=== PATIENT | female | born 1935 | race African-American/Black ===

== ENCOUNTER 2018-02-25 22:01 | Inpatient (IN) | payer MEDICARE, BC ==
[2018-02-25 23:53] LABS: % BASOPHILS 0.4 % (0.0-2.0); % EOSINOPHILS 8.1 % (0.0-5.0); % LYMPHOCYTES 22.3 % (20.0-50.0); % MONOCYTES 6.6 % (2.0-10.0); % NEUTROPHILS 62.6 % (40.0-80.0); EOSINOPHILE ABSOLUTE 0.7 Th/cmm (0.1-0.4); HEMATOCRIT 38.8 % (41.0-60); HEMOGLOBIN 12.9 gm/dL (12-16); LYMPHOCYTE ABSOLUTE 1.9 Th/cmm (1.5-3.0); MEAN CELL VOLUME 92.5 fl (81-100); MEAN CORPUSCULAR HEMOGLOBIN 30.7 pg (27.0-31.0); MEAN CORPUSCULAR HGB CONC 33.2 pg (28.0-36.0); MEAN PLATELET VOLUME 8.8 fl; MONOCYTE ABSOLUTE 0.6 Th/cmm (0.3-1.0); NEUTROPHILE ABSOLUTE 5.3 Th/cmm (1.8-8.0); PLATELET COUNT 156 Th/cmm (150-400); WHITE BLOOD COUNT 8.5 Th/cmm (4.8-10.8)
[2018-02-26 00:09] LABS: ALB/GLOB RATIO 1.5 (1.0-1.8); ALBUMIN 4.4 gm/dL (3.7-5.3); ALKALINE PHOSPHATASE 35 U/L (34-104); ANION GAP 10.3 (7.0-16.0); BILIRUBIN,TOTAL 0.4 mg/dL (0.3-1.0); BUN - UREA NITROGEN 12 mg/dL (7-25); CALCIUM SERUM 10.3 mg/dL (8.6-10.3); CARBON DIOXIDE 28.8 mEq/L (21.0-31.0); CHLORIDE 102 mEq/L (98-107); CREATININE - SERUM 1.5 mg/dL (0.6-1.2); GLUCOSE 142 mg/dL (70-105); POTASSIUM SERUM 4.1 mEq/L (3.5-5.1); SGOT 48 U/L (13-39); SGPT/ALT 54 U/L (7-52); SODIUM SERUM 137 mEq/L (136-145); TOTAL PROTEIN,SERUM 7.4 gm/dL (6.0-8.3)
--- NOTE | 2018-02-26 00:38 | ED Physician Chart ---
ED Chief Complaint/HPI - Patient Information Date Seen:: 02/26/18 Time Seen:: 23:30 Chief Complaint:: anxiety agitation psych History of Present Illness:: 82 yr old female with psychosis from [facility] with psychosis agiatation Allergies:: Allergies Allergy/AdvReac Type Severity Reaction Status Date / Time acetaminophen [From Vicodin] Allergy Verified 02/25/18 23:17 erythromycin base Allergy Verified 02/25/18 23:17 hydrocodone [From Vicodin] Allergy Verified 02/25/18 23:17 Penicillins [PCN] Allergy Verified 02/25/18 23:17 Sulfa (Sulfonamide Allergy Verified 02/25/18 23:17 Antibiotics) Vitals:: Vital Signs - 8 hr 02/25/18 23:00 Temp 97.8 F HR 84 RR 18 BP 128/72 O2 Sat % 96 Historian:: Patient, EMS ED Review of Systems - Review of Systems General/Constitutional: No fever, No chills, No weight loss, No weakness, No diaphoresis, No edema, No loss of appetite Skin: No skin lesions, No rash, No bruising Head: No headache, No light-headedness Eyes: No loss of vision, No pain, No diplopia ENT: No earache, No nasal drainage, No sore throat, No tinnitus Neck: No neck pain, No swelling, No thyromegaly, No stiffness, No mass noted Cardio Vascular: No chest pain, No palpitations, No PND, No orthopnea, No edema Pulmonary: No SOB, No cough, No sputum, No wheezing GI: No nausea, No vomiting, No diarrhea, No pain, No melena, No hematochezia, No constipation, No hematemesis G/U: No dysuria, No frequency, No hematuria Musculoskeletal: No bone or joint pain, No back pain, No muscle pain Endocrine: No polyuria, No polydipsia Psychiatric: No prior psych history, No depression, No anxiety, No suicidal ideation Hematopoietic: No bruising, No lymphadenopathy Allergic/Immuno: No urticaria, No angioedema Neurological: No syncope, No focal symptoms, No weakness, No paresthesia, No headache, No seizure, No dizziness, No confusion, No vertigo ED Past Medical History - Past Medical History Past Medical History: HTN, PUD/GERD, Other (,bipolar,dm,thyroid gerd) Family Medical History - Family Member Mother History Unknown: Yes ED Physical Exam - Physical Examination General/Constitutional: Awake, Well-developed, well-nourished, Alert, No distress, GCS 15, Non-toxic appearing, Ambulatory Head: Atraumatic Eyes: Lids, conjuctiva normal, PERRL, EOMI Skin: Nl inspection, No rash, No skin lesions, No ecchymosis, Well hydrated, No lymphadenopathy ENMT: External ears, nose nl, Nasal exam nl, Lips, teeth, gums nl Neck: Nontender, Full ROM w/o pain, No JVD, No nuchal rigidity, No bruit, No mass, No stridor Respiratory: Nl effort/Exclusion, Clear to Auscultation, No Wheeze/Rhonchi/Rales Cardio Vascular: RRR, No murmur, gallop, rubs, NL S1 S2 GI: No tenderness/rebounding/guarding, No organomegaly, No hernia, Normal BS's, Nondistended, No mass/bruits, No McBurney tenderness : No CVA tenderness Extremities: No tenderness or effusion, Full ROM, normal strength in all extremities, No edema, Normal digits & nails Neuro/Psych: Alert/oriented, DTR's symmetric, Normal sensory exam, Normal motor strength, Judgement/insight normal, Mood normal, Normal gait, No focal deficits Misc: Normal back, No paraspinal tenderness ED Labs/Radiology/EKG Results - Lab Results Results: Laboratory Tests 02/25/18 02/25/18 23:45 23:45 WBC 8.5 RBC 4.20 Hgb 12.9 Hct 38.8 L MCV 92.5 MCH 30.7 MCHC Differential 33.2 RDW 14.0 Plt Count 156 MPV 8.8 Neutrophils % 62.6 Lymphocytes % 22.3 Monocytes % 6.6 Eosinophils % 8.1 H Basophils % 0.4 Sodium 137 Potassium 4.1 Chloride 102 Carbon Dioxide 28.8 Anion Gap 10.3 BUN 12 Creatinine 1.5 H Est GFR ( Amer) TNP Est GFR (Non-Af Amer) TNP BUN/Creatinine Ratio 8.0 Glucose 142 H Calcium 10.3 Total Bilirubin 0.4 AST 48 H ALT 54 H Alkaline Phosphatase 35 Total Protein 7.4 Albumin 4.4 Globulin 3.0 Albumin/Globulin Ratio 1.5 ED Assessment - Assessment General Assessment: bipolar disorder ED Septic Shock - . Is Septic Shock (SBP<90, OR Lactate>4 mmol\L) present?: No - <6hrs of presentation: Vital Signs: Vital Signs - 8 hr 02/25/18 23:00 Temp 97.8 F HR 84 RR 18 BP 128/72 O2 Sat % 96 ED Reassessment (Disposition) - Reassessment Reassessment Condition:: Improved - Diagnosis Diagnosis:: psychosis bipolar - Patient Disposition Discharge/Transfer:: Acute Care w/in this hosp
[2018-02-26 01:06] LABS: URINE MICROSCOPIC INDICATED? YES; URINE SOURCE CLEAN C
[2018-02-26 01:08] LABS: URINE BILIRUBIN NEGATIVE (NEGATIVE); URINE BLOOD NEGATIVE (NEGATIVE); URINE GLUCOSE (UA) NEGATIVE (NEGATIVE); URINE KETONE NEGATIVE (NEGATIVE); URINE LEUKOCYTE ESTERASE NEGATIVE (NEGATIVE); URINE NITRATE NEGATIVE (NEGATIVE); URINE PROTEIN NEGATIVE (NEGATIVE); URINE UROBILINOGEN 0.2 E.U./dL (0.2 - 1.0)
[2018-02-26 01:29] LABS: URINE CLARITY CLEAR (CLEAR); URINE COLOR YELLOW
[2018-02-26 01:30] LABS: URINE BACTERIA NONE SEEN /hpf (NONE SEEN); URINE EPITHELIAL CELLS NONE SEEN /lpf (FEW); URINE RBC NONE SEEN /hpf (0-5); URINE WBC NONE SEEN /hpf (0-5)
[2018-02-26] MEDS ORDERED: Albuterol/Ipratropium Neb 3 ML AERS HHN PRN (02:10)
[2018-02-26] MEDS ORDERED: Fleet Enema 135 mL RC PRN (02:10)
[2018-02-26] MEDS ORDERED: Magnesium Hydroxide (MOM) 30 mL UDC PO PRN (02:10)
[2018-02-26] MEDS: Levothyroxine 0.075 Mg Tab PO SCH (06:53)
[2018-02-26] MEDS: Pantoprazole 40 mg EC Tab PO SCH (06:53)
--- NOTE | 2018-02-26 11:26 | History & Physical ---
ADMIT DATE: 02/26/2018 CHIEF COMPLAINT: Agitation. HISTORY OF PRESENT ILLNESS: This is an 82-year-old female who was admitted from a group home facility and then sent to the Emergency Room due to increase in agitation. REVIEW OF SYSTEMS: GENERAL: This is an 82-year-old female that appears as stated, no fever, no chills, no weakness. HEAD: No headache. No dizziness. EYES: No eye pain, no blurring of vision. NECK: No neck pain, no nuchal rigidity. CARDIOVASCULAR: No chest pain. No palpitation. PULMONARY: No shortness of breath, no coughing. GASTROINTESTINAL: No diarrhea, no constipation, no abdominal pain. MUSCULOSKELETAL: No bone pain, no joint pain. SOCIAL HISTORY: The patient lives in a group home facility prior to hospitalization. FAMILY HISTORY: Unremarkable. PAST SURGICAL HISTORY: Unremarkable. PAST MEDICAL HISTORY: Includes asthma, hypertension, neuropathy, hypothyroidism, gastroesophageal reflux disease, diabetes, osteoarthritis. PSYCHIATRIC HISTORY: Includes bipolar disorder. PHYSICAL EXAMINATION: VITAL SIGNS: Temperature 97.8, heart rate of 76, blood pressure 135/77, respiration of 18, 98% on room air. HEENT: Head is atraumatic, normocephalic. Eyes: Bilateral conjunctivae are clear. Bilateral pupils are equally round and reactive. NECK: Supple. No JVD. CARDIOVASCULAR: S1 and S2, without murmur. PULMONARY: Clear to auscultation. GASTROINTESTINAL: Soft and nontender without guarding. Positive bowel sounds. MUSCULOSKELETAL: No clubbing. No cyanosis noted. ASSESSMENT: 1. Bipolar disorder. 2. Asthma. 3. Hyperlipidemia. 4. Osteoarthritis. 5. Hypertension. 6. Depression. 7. Neuropathy. 8. Hypothyroidism. 9. Gastroesophageal reflux disease. 10. Diabetes. PLAN: We will admit the patient to senior mental health unit. We will follow up with the psychiatrist to monitor the patient's condition and behavior. Also, going to do medication reconciliation accordingly. Treatment plans were discussed with the patient's nurse. Treatment plans were discussed with Dr. Bianchi. JOB# [id number]
[2018-02-26] MEDS ORDERED: Non-Formulary Item 1 EA (Melatonin/Pyridoxine Hcl (B6) [Melatonin 3 Mg Tablet] 1 EACH) PO SCH (21:00)
[2018-02-26] MEDS: Atorvastatin Calcium 10 MG TAB PO SCH (21:20)
--- NOTE | 2018-02-26 23:51 | Psychosocial Evaluation ---
DATE OF SERVICE: 02/26/2018 PSYCHIATRIC INITIAL EVALUATION AND MENTAL STATUS EXAM PATIENT'S AGE: 82-year-old. SEX: Female. PHYSICIAN: Patricia Rivera MD, MPH CHIEF COMPLAINT: Irritability and manic behavior. HISTORY OF PRESENT ILLNESS: The patient is an 82-year-old female who was transferred from [facility] because of increased aggressive behavior and striking out at staff and other patients. The patient has history of what seems to be bipolar and the patient states she has been manic and has been extremely irritable. The patient also during my interview was hyperverbal and she was selective and has elated mood. The patient also is intrusive to others. She also was not able to follow my directions and the speech was pressured. PAST PSYCHIATRIC HISTORY: The patient has history of bipolar disorder. PAST MEDICAL HISTORY: The patient has hypertension, peptic ulcer disease, diabetes mellitus and hypothyroidism. SOCIAL HISTORY: The patient said that she has 3 children. The patient said that she was many times. She also denies alcohol or street drug use. ALLERGIES: No known allergies. MENTAL STATUS EXAMINATION: The patient appears younger than her stated age. Loud makeup and clothes. Hyperverbal. Pressured speech and thought processes are circumstantial and tangential with flight of ideas. The patient denies auditory or visual hallucinations, but has grandeur delusions. She denies suicidal or homicidal ideations. The patient is alert and oriented to time, place, person, and situation. Intact immediate, recent and remote memories. Poor insight and poor judgment. ASSESSMENT: PRIMARY DIAGNOSIS: Bipolar disorder, manic episode, severe, with psychotic features. TREATMENT PLAN: Monitor the patient's behavior closely. We will start the patient on Seroquel. Might add mood stabilizer later on. ESTIMATED LENGTH OF STAY: 5-7 days. THE PATIENT'S STRENGTHS AND WEAKNESSES: The patient seems to be in relatively fair health. Weaknesses: Her psychosis and her manic behavior. AFTER DISCHARGE PLAN: The patient will return to [facility] and outpatient treatment and followup will be followed there. CRITERIA FOR DISCHARGE: The patient will not be psychotic or agitated and stabilized psychotropic medications and establish outpatient treatment plans. JOB# [id number]
[2018-02-27] MEDS: Pantoprazole 40 mg EC Tab PO SCH (06:41)
[2018-02-27] MEDS: Levothyroxine 0.075 Mg Tab PO SCH (06:41)
--- NOTE | 2018-02-27 07:06 | General Progress Note ---
Subjective - Review of Systems Events since last encounter: patient confused irritable no signs of pain Objective - Results Result Diagrams: 02/25/18 23:45 02/25/18 23:45 Recent Labs: Laboratory Last Values WBC 8.5 Th/cmm (4.8-10.8) 02/25/18 23:45 RBC 4.20 Mil/cmm (3.80-5.20) 02/25/18 23:45 Hgb 12.9 gm/dL (12-16) 02/25/18 23:45 Hct 38.8 % (41.0-60) L 02/25/18 23:45 MCV 92.5 fl (81-100) 02/25/18 23:45 MCH 30.7 pg (27.0-31.0) 02/25/18 23:45 MCHC Differential 33.2 pg (28.0-36.0) 02/25/18 23:45 RDW 14.0 % (11.5-20.0) 02/25/18 23:45 Plt Count 156 Th/cmm (150-400) 02/25/18 23:45 MPV 8.8 fl 02/25/18 23:45 Neutrophils % 62.6 % (40.0-80.0) 02/25/18 23:45 Lymphocytes % 22.3 % (20.0-50.0) 02/25/18 23:45 Monocytes % 6.6 % (2.0-10.0) 02/25/18 23:45 Eosinophils % 8.1 % (0.0-5.0) H 02/25/18 23:45 Basophils % 0.4 % (0.0-2.0) 02/25/18 23:45 Sodium 137 mEq/L (136-145) 02/25/18 23:45 Potassium 4.1 mEq/L (3.5-5.1) 02/25/18 23:45 Chloride 102 mEq/L (98-107) 02/25/18 23:45 Carbon Dioxide 28.8 mEq/L (21.0-31.0) 02/25/18 23:45 Anion Gap 10.3 (7.0-16.0) 02/25/18 23:45 BUN 12 mg/dL (7-25) 02/25/18 23:45 Creatinine 1.5 mg/dL (0.6-1.2) H 02/25/18 23:45 Est GFR ( Amer) TNP 02/25/18 23:45 Est GFR (Non-Af Amer) TNP 02/25/18 23:45 BUN/Creatinine Ratio 8.0 02/25/18 23:45 Glucose 142 mg/dL (70-105) H 02/25/18 23:45 Calcium 10.3 mg/dL (8.6-10.3) 02/25/18 23:45 Total Bilirubin 0.4 mg/dL (0.3-1.0) 02/25/18 23:45 AST 48 U/L (13-39) H 02/25/18 23:45 ALT 54 U/L (7-52) H 02/25/18 23:45 Alkaline Phosphatase 35 U/L (34-104) 02/25/18 23:45 Total Protein 7.4 gm/dL (6.0-8.3) 02/25/18 23:45 Albumin 4.4 gm/dL (3.7-5.3) 02/25/18 23:45 Globulin 3.0 gm/dL 02/25/18 23:45 Albumin/Globulin Ratio 1.5 (1.0-1.8) 02/25/18 23:45 Urine Source CLEAN C 02/26/18 00:30 Urine Color YELLOW 02/26/18 00:30 Urine Clarity CLEAR (CLEAR) 02/26/18 00:30 Urine pH 6.0 (4.6 - 8.0) 02/26/18 00:30 Ur Specific [place] <= 1.005 (1.005-1.030) 02/26/18 00:30 Urine Protein NEGATIVE mg/dL (NEGATIVE) 02/26/18 00:30 Urine Glucose (UA) NEGATIVE mg/dL (NEGATIVE) 02/26/18 00:30 Urine Ketones NEGATIVE mg/dL (NEGATIVE) 02/26/18 00:30 Urine Blood NEGATIVE (NEGATIVE) 02/26/18 00:30 Urine Nitrate NEGATIVE (NEGATIVE) 02/26/18 00:30 Urine Bilirubin NEGATIVE (NEGATIVE) 02/26/18 00:30 Urine Urobilinogen 0.2 E.U./dL (0.2 - 1.0) 02/26/18 00:30 Ur Leukocyte Esterase NEGATIVE (NEGATIVE) 02/26/18 00:30 Urine RBC NONE SEEN /hpf (0-5) 02/26/18 00:30 Urine WBC NONE SEEN /hpf (0-5) 02/26/18 00:30 Ur Epithelial Cells NONE SEEN /lpf (FEW) 02/26/18 00:30 Urine Bacteria NONE SEEN /hpf (NONE SEEN) 02/26/18 00:30 - Physical Exam Vitals and I&O: Vital Signs Temp 97.2 F 02/27/18 06:44 Pulse 96 02/27/18 06:44 Resp 18 02/27/18 06:44 BP 145/82 02/27/18 06:44 Pulse Ox 98 02/27/18 06:44 Intake & Output 02/26/18 02/27/18 02/27/18 18:59 06:59 18:59 Intake Total 360 Balance 360 Intake: Oral 360 Other: # Voids 2 Active Medications: Current Medications Albuterol/Ipratropium (Duoneb Neb) 3 ml HHN Q6HRT PRN PRN Reason: Chronic Bronchitis Stop: 04/27/18 02:09 Atorvastatin Calcium (Lipitor) 40 mg PO [facility] Stop: 04/27/18 20:59 Last Admin: 02/26/18 21:20 Dose: 40 mg Baclofen (Lioresal) 10 mg PO BID [facility] Stop: 04/27/18 08:59 Last Admin: 02/26/18 16:38 Dose: 10 mg Benazepril HCl (Lotensin) 10 mg PO DAILY [facility] Stop: 04/27/18 08:59 Last Admin: 02/26/18 08:29 Dose: 10 mg Bisacodyl (Dulcolax 10 Mg Supp) 10 mg RC DAILY PRN PRN Reason: Constipation Stop: 04/27/18 02:09 Divalproex Sodium (Depakote Dr) 250 mg PO BID [facility]; Protocol Stop: 04/27/18 08:59 Last Admin: 02/26/18 16:37 Dose: 250 mg Docusate Sodium (Colace) 100 mg PO DAILY [facility] Stop: 04/27/18 08:59 Last Admin: 02/26/18 08:29 Dose: 100 mg Escitalopram Oxalate (Lexapro) 10 mg PO DAILY [facility]; Protocol Stop: 04/27/18 08:59 Last Admin: 02/26/18 08:29 Dose: 10 mg Gabapentin (Neurontin) 300 mg PO BID [facility] Stop: 04/27/18 08:59 Last Admin: 02/26/18 16:37 Dose: 300 mg Hydrocortisone (Anusol-Hc) 25 mg RC Q12HR [facility] Stop: 04/27/18 08:59 Last Admin: 02/26/18 21:21 Dose: Not Given Levothyroxine Sodium (Synthroid) 0.075 mg PO QDAC [facility] Stop: 04/27/18 07:29 Last Admin: 02/27/18 06:41 Dose: 0.075 mg Lorazepam (Ativan) 0.5 mg PO Q6HR PRN; Protocol PRN Reason: Agitation Stop: 04/27/18 04:47 Last Admin: 02/26/18 16:38 Dose: 0.5 mg Magnesium Hydroxide (Milk Of Magnesia) 30 ml PO HS PRN PRN Reason: Pain (Severe) Stop: 04/27/18 02:09 Pantoprazole Sodium (Protonix) 40 mg PO QDAC [facility] Stop: 04/27/18 07:29 Last Admin: 02/27/18 06:41 Dose: 40 mg Quetiapine Fumarate (Seroquel) 25 mg PO BID [facility]; Protocol Stop: 04/27/18 16:59 Last Admin: 02/26/18 16:38 Dose: 25 mg Sitagliptin Phosphate (Januvia) 100 mg PO DAILY [facility] Stop: 04/27/18 08:59 Last Admin: 02/26/18 08:29 Dose: 100 mg Sodium Phosphate (Fleet Enema) 135 ml RC Q48HR PRN PRN Reason: Constipation Stop: 04/27/18 02:09 Tramadol HCl (Ultram) 50 mg PO Q6H PRN PRN Reason: Severe Pain Stop: 04/27/18 02:09 Last Admin: 02/26/18 17:31 Dose: 50 mg Zolpidem Tartrate (Ambien) 5 mg PO HS PRN PRN Reason: Insomnia Stop: 04/27/18 04:48
--- NOTE | 2018-02-27 17:54 | Progress Notes ---
DATE: SUBJECTIVE: Chart reviewed and the patient interviewed. Also discussed the patient's condition with the staff and reviewed records and labs. The patient continued to be agitated. The patient also is still in irritable mood. The patient also still has grandiose delusions. She also is still hyperverbal. She also still has episodes of yelling and screaming. Otherwise, the patient is compliant with taking her medications with no side effect of medications. ASSESSMENT: The patient is still agitated. TREATMENT PLAN: Continue to monitor her behavior and her condition closely. Also, continue adjusting psychotropic medications and working on behavioral modification. JOB# [id number]
[2018-02-27] MEDS: Atorvastatin Calcium 10 MG TAB PO SCH (20:46)
[2018-02-28] MEDS: Pantoprazole 40 mg EC Tab PO SCH (06:38)
[2018-02-28] MEDS: Levothyroxine 0.075 Mg Tab PO SCH (06:38)
--- NOTE | 2018-02-28 08:47 | General Progress Note ---
Subjective - Review of Systems Events since last encounter: patient is agitated no signs of pain Objective - Results Result Diagrams: 02/25/18 23:45 02/25/18 23:45 Recent Labs: Laboratory Last Values WBC 8.5 Th/cmm (4.8-10.8) 02/25/18 23:45 RBC 4.20 Mil/cmm (3.80-5.20) 02/25/18 23:45 Hgb 12.9 gm/dL (12-16) 02/25/18 23:45 Hct 38.8 % (41.0-60) L 02/25/18 23:45 MCV 92.5 fl (81-100) 02/25/18 23:45 MCH 30.7 pg (27.0-31.0) 02/25/18 23:45 MCHC Differential 33.2 pg (28.0-36.0) 02/25/18 23:45 RDW 14.0 % (11.5-20.0) 02/25/18 23:45 Plt Count 156 Th/cmm (150-400) 02/25/18 23:45 MPV 8.8 fl 02/25/18 23:45 Neutrophils % 62.6 % (40.0-80.0) 02/25/18 23:45 Lymphocytes % 22.3 % (20.0-50.0) 02/25/18 23:45 Monocytes % 6.6 % (2.0-10.0) 02/25/18 23:45 Eosinophils % 8.1 % (0.0-5.0) H 02/25/18 23:45 Basophils % 0.4 % (0.0-2.0) 02/25/18 23:45 Sodium 137 mEq/L (136-145) 02/25/18 23:45 Potassium 4.1 mEq/L (3.5-5.1) 02/25/18 23:45 Chloride 102 mEq/L (98-107) 02/25/18 23:45 Carbon Dioxide 28.8 mEq/L (21.0-31.0) 02/25/18 23:45 Anion Gap 10.3 (7.0-16.0) 02/25/18 23:45 BUN 12 mg/dL (7-25) 02/25/18 23:45 Creatinine 1.5 mg/dL (0.6-1.2) H 02/25/18 23:45 Est GFR ( Amer) TNP 02/25/18 23:45 Est GFR (Non-Af Amer) TNP 02/25/18 23:45 BUN/Creatinine Ratio 8.0 02/25/18 23:45 Glucose 142 mg/dL (70-105) H 02/25/18 23:45 Calcium 10.3 mg/dL (8.6-10.3) 02/25/18 23:45 Total Bilirubin 0.4 mg/dL (0.3-1.0) 02/25/18 23:45 AST 48 U/L (13-39) H 02/25/18 23:45 ALT 54 U/L (7-52) H 02/25/18 23:45 Alkaline Phosphatase 35 U/L (34-104) 02/25/18 23:45 Total Protein 7.4 gm/dL (6.0-8.3) 02/25/18 23:45 Albumin 4.4 gm/dL (3.7-5.3) 02/25/18 23:45 Globulin 3.0 gm/dL 02/25/18 23:45 Albumin/Globulin Ratio 1.5 (1.0-1.8) 02/25/18 23:45 Urine Source CLEAN C 02/26/18 00:30 Urine Color YELLOW 02/26/18 00:30 Urine Clarity CLEAR (CLEAR) 02/26/18 00:30 Urine pH 6.0 (4.6 - 8.0) 02/26/18 00:30 Ur Specific [place] <= 1.005 (1.005-1.030) 02/26/18 00:30 Urine Protein NEGATIVE mg/dL (NEGATIVE) 02/26/18 00:30 Urine Glucose (UA) NEGATIVE mg/dL (NEGATIVE) 02/26/18 00:30 Urine Ketones NEGATIVE mg/dL (NEGATIVE) 02/26/18 00:30 Urine Blood NEGATIVE (NEGATIVE) 02/26/18 00:30 Urine Nitrate NEGATIVE (NEGATIVE) 02/26/18 00:30 Urine Bilirubin NEGATIVE (NEGATIVE) 02/26/18 00:30 Urine Urobilinogen 0.2 E.U./dL (0.2 - 1.0) 02/26/18 00:30 Ur Leukocyte Esterase NEGATIVE (NEGATIVE) 02/26/18 00:30 Urine RBC NONE SEEN /hpf (0-5) 02/26/18 00:30 Urine WBC NONE SEEN /hpf (0-5) 02/26/18 00:30 Ur Epithelial Cells NONE SEEN /lpf (FEW) 02/26/18 00:30 Urine Bacteria NONE SEEN /hpf (NONE SEEN) 02/26/18 00:30 - Physical Exam Vitals and I&O: Vital Signs Temp 97.2 F 02/28/18 06:46 Pulse 75 02/28/18 06:46 Resp 20 02/28/18 06:46 BP 141/78 02/28/18 06:46 Pulse Ox 97 02/28/18 06:46 Intake & Output 02/27/18 02/28/18 02/28/18 18:59 06:59 18:59 Intake Total 800 120 Balance 800 120 Intake: Oral 800 120 Other: # Voids 3 2 # Bowel Movements 1 Active Medications: Current Medications Albuterol/Ipratropium (Duoneb Neb) 3 ml HHN Q6HRT PRN PRN Reason: Chronic Bronchitis Stop: 04/27/18 02:09 Last Admin: 02/28/18 06:37 Dose: 3 ml Atorvastatin Calcium (Lipitor) 40 mg PO HS [facility] Stop: 04/27/18 20:59 Last Admin: 02/27/18 20:46 Dose: 40 mg Baclofen (Lioresal) 10 mg PO BID [facility] Stop: 04/27/18 08:59 Last Admin: 02/27/18 17:46 Dose: 10 mg Benazepril HCl (Lotensin) 10 mg PO DAILY [facility] Stop: 04/27/18 08:59 Last Admin: 02/27/18 09:50 Dose: 10 mg Bisacodyl (Dulcolax 10 Mg Supp) 10 mg RC DAILY PRN PRN Reason: Constipation Stop: 04/27/18 02:09 Divalproex Sodium (Depakote Dr) 500 mg PO BID [facility]; Protocol Stop: 04/29/18 08:59 Docusate Sodium (Colace) 100 mg PO DAILY [facility] Stop: 04/27/18 08:59 Last Admin: 02/27/18 09:50 Dose: 100 mg Escitalopram Oxalate (Lexapro) 10 mg PO DAILY [facility]; Protocol Stop: 04/27/18 08:59 Last Admin: 02/27/18 09:50 Dose: 10 mg Gabapentin (Neurontin) 300 mg PO BID [facility] Stop: 04/27/18 08:59 Last Admin: 02/27/18 17:46 Dose: 300 mg Hydrocortisone (Anusol-Hc) 25 mg RC Q12HR [facility] Stop: 04/27/18 08:59 Last Admin: 02/27/18 20:47 Dose: Not Given Levothyroxine Sodium (Synthroid) 0.075 mg PO QDAC [facility] Stop: 04/27/18 07:29 Last Admin: 02/28/18 06:38 Dose: 0.075 mg Lorazepam (Ativan) 0.5 mg PO Q6HR PRN; Protocol PRN Reason: Agitation Stop: 04/27/18 04:47 Last Admin: 02/26/18 16:38 Dose: 0.5 mg Magnesium Hydroxide (Milk Of Magnesia) 30 ml PO HS PRN PRN Reason: Pain (Severe) Stop: 04/27/18 02:09 Mupirocin (Bactroban Oint) 1 appl NS BID [facility] Stop: 03/04/18 09:01 Last Admin: 02/27/18 17:50 Dose: 1 appl Pantoprazole Sodium (Protonix) 40 mg PO QDAC [facility] Stop: 04/27/18 07:29 Last Admin: 02/28/18 06:38 Dose: 40 mg Quetiapine Fumarate (Seroquel) 50 mg PO BID [facility]; Protocol Stop: 04/29/18 08:59 Sitagliptin Phosphate (Januvia) 100 mg PO DAILY [facility] Stop: 04/27/18 08:59 Last Admin: 02/27/18 09:50 Dose: 100 mg Sodium Phosphate (Fleet Enema) 135 ml RC Q48HR PRN PRN Reason: Constipation Stop: 04/27/18 02:09 Tramadol HCl (Ultram) 50 mg PO Q6H PRN PRN Reason: Severe Pain Stop: 04/27/18 02:09 Last Admin: 02/26/18 17:31 Dose: 50 mg Zolpidem Tartrate (Ambien) 5 mg PO HS PRN PRN Reason: Insomnia Stop: 04/27/18 04:48 Last Admin: 02/27/18 20:46 Dose: 5 mg
[2018-02-28] MEDS ORDERED: Albuterol/Ipratropium Neb 3 ML AERS HHN ONE (12:13)
[2018-02-28] MEDS: Albuterol/Ipratropium Neb 3 ML AERS HHN SCH ×2 (12:18→19:37)
[2018-02-28] MEDS: Atorvastatin Calcium 10 MG TAB PO SCH (20:56)
--- NOTE | 2018-03-01 03:44 | Progress Notes ---
DATE: SUBJECTIVE: Chart reviewed and the patient interviewed. Also discussed the patient's condition with the staff and reviewed records and labs. The patient is still resisting care and she is still getting easily irritable and easily agitated. The patient also is still having difficulty with her mood and she is still cursing staff and talking loudly and demanding. She also is still in irritable mood and she still has difficulty following staff directions. Otherwise, the patient is compliant with taking her medications with no side effects of medications. ASSESSMENT: The patient is still agitated and psychotic and can be dangerous to others. TREATMENT PLAN: Increase Seroquel to 50 mg twice a day and also increase Depakote to 500 mg twice a day. Also, continue to work on her irritability and her anger. Also, we will get Depakote blood level next Wednesday and will continue to follow up closely. JOB# [id number]
[2018-03-01] MEDS: Pantoprazole 40 mg EC Tab PO SCH (06:43)
[2018-03-01] MEDS: Levothyroxine 0.075 Mg Tab PO SCH (06:43)
[2018-03-01] MEDS: Albuterol/Ipratropium Neb 3 ML AERS HHN SCH ×4 (07:04→19:30)
[2018-03-01] MEDS: Atorvastatin Calcium 10 MG TAB PO SCH (20:41)
[2018-03-02] MEDS: Albuterol/Ipratropium Neb 3 ML AERS HHN SCH ×5 (00:30→18:54)
[2018-03-02] MEDS: Pantoprazole 40 mg EC Tab PO SCH (06:36)
[2018-03-02] MEDS: Levothyroxine 0.075 Mg Tab PO SCH (06:37)
--- NOTE | 2018-03-02 16:28 | General Progress Note ---
Subjective - Review of Systems Events since last encounter: patient psychotics agitated at times Objective - Results Result Diagrams: 02/25/18 23:45 02/25/18 23:45 Recent Labs: Laboratory Last Values WBC 8.5 Th/cmm (4.8-10.8) 02/25/18 23:45 RBC 4.20 Mil/cmm (3.80-5.20) 02/25/18 23:45 Hgb 12.9 gm/dL (12-16) 02/25/18 23:45 Hct 38.8 % (41.0-60) L 02/25/18 23:45 MCV 92.5 fl (81-100) 02/25/18 23:45 MCH 30.7 pg (27.0-31.0) 02/25/18 23:45 MCHC Differential 33.2 pg (28.0-36.0) 02/25/18 23:45 RDW 14.0 % (11.5-20.0) 02/25/18 23:45 Plt Count 156 Th/cmm (150-400) 02/25/18 23:45 MPV 8.8 fl 02/25/18 23:45 Neutrophils % 62.6 % (40.0-80.0) 02/25/18 23:45 Lymphocytes % 22.3 % (20.0-50.0) 02/25/18 23:45 Monocytes % 6.6 % (2.0-10.0) 02/25/18 23:45 Eosinophils % 8.1 % (0.0-5.0) H 02/25/18 23:45 Basophils % 0.4 % (0.0-2.0) 02/25/18 23:45 Sodium 137 mEq/L (136-145) 02/25/18 23:45 Potassium 4.1 mEq/L (3.5-5.1) 02/25/18 23:45 Chloride 102 mEq/L (98-107) 02/25/18 23:45 Carbon Dioxide 28.8 mEq/L (21.0-31.0) 02/25/18 23:45 Anion Gap 10.3 (7.0-16.0) 02/25/18 23:45 BUN 12 mg/dL (7-25) 02/25/18 23:45 Creatinine 1.5 mg/dL (0.6-1.2) H 02/25/18 23:45 Est GFR ( Amer) TNP 02/25/18 23:45 Est GFR (Non-Af Amer) TNP 02/25/18 23:45 BUN/Creatinine Ratio 8.0 02/25/18 23:45 Glucose 142 mg/dL (70-105) H 02/25/18 23:45 Calcium 10.3 mg/dL (8.6-10.3) 02/25/18 23:45 Total Bilirubin 0.4 mg/dL (0.3-1.0) 02/25/18 23:45 AST 48 U/L (13-39) H 02/25/18 23:45 ALT 54 U/L (7-52) H 02/25/18 23:45 Alkaline Phosphatase 35 U/L (34-104) 02/25/18 23:45 Total Protein 7.4 gm/dL (6.0-8.3) 02/25/18 23:45 Albumin 4.4 gm/dL (3.7-5.3) 02/25/18 23:45 Globulin 3.0 gm/dL 02/25/18 23:45 Albumin/Globulin Ratio 1.5 (1.0-1.8) 02/25/18 23:45 Urine Source CLEAN C 02/26/18 00:30 Urine Color YELLOW 02/26/18 00:30 Urine Clarity CLEAR (CLEAR) 02/26/18 00:30 Urine pH 6.0 (4.6 - 8.0) 02/26/18 00:30 Ur Specific [place] <= 1.005 (1.005-1.030) 02/26/18 00:30 Urine Protein NEGATIVE mg/dL (NEGATIVE) 02/26/18 00:30 Urine Glucose (UA) NEGATIVE mg/dL (NEGATIVE) 02/26/18 00:30 Urine Ketones NEGATIVE mg/dL (NEGATIVE) 02/26/18 00:30 Urine Blood NEGATIVE (NEGATIVE) 02/26/18 00:30 Urine Nitrate NEGATIVE (NEGATIVE) 02/26/18 00:30 Urine Bilirubin NEGATIVE (NEGATIVE) 02/26/18 00:30 Urine Urobilinogen 0.2 E.U./dL (0.2 - 1.0) 02/26/18 00:30 Ur Leukocyte Esterase NEGATIVE (NEGATIVE) 02/26/18 00:30 Urine RBC NONE SEEN /hpf (0-5) 02/26/18 00:30 Urine WBC NONE SEEN /hpf (0-5) 02/26/18 00:30 Ur Epithelial Cells NONE SEEN /lpf (FEW) 02/26/18 00:30 Urine Bacteria NONE SEEN /hpf (NONE SEEN) 02/26/18 00:30 - Physical Exam Vitals and I&O: Vital Signs Temp 97.6 F 03/02/18 14:00 Pulse 78 03/02/18 14:00 Resp 20 03/02/18 14:00 BP 104/55 03/02/18 14:00 Pulse Ox 98 03/02/18 14:00 Intake & Output 03/01/18 03/02/18 03/02/18 18:59 06:59 18:59 Intake Total 1400 360 Balance 1400 360 Intake: Oral 1400 360 Other: # Voids 4 2 # Bowel Movements 1 Active Medications: Current Medications Albuterol/Ipratropium (Duoneb Neb) 3 ml HHN Q6HRT [facility] Stop: 04/29/18 12:59 Last Admin: 03/02/18 13:34 Dose: 3 ml Atorvastatin Calcium (Lipitor) 40 mg PO HS [facility] Stop: 04/27/18 20:59 Last Admin: 03/01/18 20:41 Dose: 40 mg Baclofen (Lioresal) 10 mg PO BID [facility] Stop: 04/27/18 08:59 Last Admin: 03/02/18 09:22 Dose: 10 mg Benazepril HCl (Lotensin) 10 mg PO DAILY [facility] Stop: 04/27/18 08:59 Last Admin: 03/02/18 09:22 Dose: 10 mg Bisacodyl (Dulcolax 10 Mg Supp) 10 mg RC DAILY PRN PRN Reason: Constipation Stop: 04/27/18 02:09 Divalproex Sodium (Depakote Dr) 500 mg PO BID [facility]; Protocol Stop: 04/29/18 22:59 Last Admin: 03/02/18 09:22 Dose: 500 mg Docusate Sodium (Colace) 100 mg PO DAILY [facility] Stop: 04/27/18 08:59 Last Admin: 03/02/18 09:22 Dose: 100 mg Escitalopram Oxalate (Lexapro) 10 mg PO DAILY [facility]; Protocol Stop: 04/27/18 08:59 Last Admin: 03/02/18 09:21 Dose: 10 mg Gabapentin (Neurontin) 300 mg PO BID [facility] Stop: 04/27/18 08:59 Last Admin: 03/02/18 09:24 Dose: 300 mg Hydrocortisone (Anusol-Hc) 25 mg RC Q12HR [facility] Stop: 04/27/18 08:59 Last Admin: 03/01/18 20:42 Dose: 25 mg Levothyroxine Sodium (Synthroid) 0.075 mg PO QDAC [facility] Stop: 04/27/18 07:29 Last Admin: 03/02/18 06:37 Dose: 0.075 mg Lorazepam (Ativan) 0.5 mg PO Q6HR PRN; Protocol PRN Reason: Agitation Stop: 04/27/18 04:47 Last Admin: 02/28/18 10:08 Dose: 0.5 mg Magnesium Hydroxide (Milk Of Magnesia) 30 ml PO HS PRN PRN Reason: Pain (Severe) Stop: 04/27/18 02:09 Mupirocin (Bactroban Oint) 1 appl NS BID [facility] Stop: 03/04/18 09:01 Last Admin: 03/01/18 16:29 Dose: 1 appl Pantoprazole Sodium (Protonix) 40 mg PO QDAC [facility] Stop: 04/27/18 07:29 Last Admin: 03/02/18 06:36 Dose: 40 mg Quetiapine Fumarate (Seroquel) 50 mg PO BID [facility]; Protocol Stop: 04/29/18 22:59 Last Admin: 03/02/18 09:22 Dose: 50 mg Sitagliptin Phosphate (Januvia) 100 mg PO DAILY [facility] Stop: 04/27/18 08:59 Last Admin: 03/02/18 09:22 Dose: 100 mg Sodium Phosphate (Fleet Enema) 135 ml RC Q48HR PRN PRN Reason: Constipation Stop: 04/27/18 02:09 Tramadol HCl (Ultram) 50 mg PO Q6H PRN PRN Reason: Severe Pain Stop: 04/27/18 02:09 Last Admin: 02/26/18 17:31 Dose: 50 mg Zolpidem Tartrate (Ambien) 5 mg PO HS PRN PRN Reason: Insomnia Stop: 04/27/18 04:48 Last Admin: 02/27/18 20:46 Dose: 5 mg
[2018-03-02] MEDS: Atorvastatin Calcium 10 MG TAB PO SCH (21:07)
--- NOTE | 2018-03-02 22:21 | Progress Notes ---
DATE: Chart reviewed and the patient interviewed. Also discussed the patient's condition with the staff and reviewed records and labs. The patient is still manicky and still hyperverbal and hyper talkative. The patient also is still argumentative. The patient also continued to wear loud colorful clothes. Her thought processes are circumstantial and tangential. Also, her speech is pressured. Otherwise, the patient has continued to comply with taking her medications with no side effect of Seroquel or Depakote. Depakote blood level will be done next Wednesday. JOB# [id number]
[2018-03-03] MEDS: Albuterol/Ipratropium Neb 3 ML AERS HHN SCH ×5 (00:17→18:52)
[2018-03-03] MEDS: Levothyroxine 0.075 Mg Tab PO SCH (06:42)
[2018-03-03] MEDS: Pantoprazole 40 mg EC Tab PO SCH (06:42)
--- NOTE | 2018-03-03 11:29 | General Progress Note ---
Subjective - Review of Systems Events since last encounter: patient awake still confused irritable Objective - Results Result Diagrams: 02/25/18 23:45 02/25/18 23:45 Recent Labs: Laboratory Last Values WBC 8.5 Th/cmm (4.8-10.8) 02/25/18 23:45 RBC 4.20 Mil/cmm (3.80-5.20) 02/25/18 23:45 Hgb 12.9 gm/dL (12-16) 02/25/18 23:45 Hct 38.8 % (41.0-60) L 02/25/18 23:45 MCV 92.5 fl (81-100) 02/25/18 23:45 MCH 30.7 pg (27.0-31.0) 02/25/18 23:45 MCHC Differential 33.2 pg (28.0-36.0) 02/25/18 23:45 RDW 14.0 % (11.5-20.0) 02/25/18 23:45 Plt Count 156 Th/cmm (150-400) 02/25/18 23:45 MPV 8.8 fl 02/25/18 23:45 Neutrophils % 62.6 % (40.0-80.0) 02/25/18 23:45 Lymphocytes % 22.3 % (20.0-50.0) 02/25/18 23:45 Monocytes % 6.6 % (2.0-10.0) 02/25/18 23:45 Eosinophils % 8.1 % (0.0-5.0) H 02/25/18 23:45 Basophils % 0.4 % (0.0-2.0) 02/25/18 23:45 Sodium 137 mEq/L (136-145) 02/25/18 23:45 Potassium 4.1 mEq/L (3.5-5.1) 02/25/18 23:45 Chloride 102 mEq/L (98-107) 02/25/18 23:45 Carbon Dioxide 28.8 mEq/L (21.0-31.0) 02/25/18 23:45 Anion Gap 10.3 (7.0-16.0) 02/25/18 23:45 BUN 12 mg/dL (7-25) 02/25/18 23:45 Creatinine 1.5 mg/dL (0.6-1.2) H 02/25/18 23:45 Est GFR ( Amer) TNP 02/25/18 23:45 Est GFR (Non-Af Amer) TNP 02/25/18 23:45 BUN/Creatinine Ratio 8.0 02/25/18 23:45 Glucose 142 mg/dL (70-105) H 02/25/18 23:45 Calcium 10.3 mg/dL (8.6-10.3) 02/25/18 23:45 Total Bilirubin 0.4 mg/dL (0.3-1.0) 02/25/18 23:45 AST 48 U/L (13-39) H 02/25/18 23:45 ALT 54 U/L (7-52) H 02/25/18 23:45 Alkaline Phosphatase 35 U/L (34-104) 02/25/18 23:45 Total Protein 7.4 gm/dL (6.0-8.3) 02/25/18 23:45 Albumin 4.4 gm/dL (3.7-5.3) 02/25/18 23:45 Globulin 3.0 gm/dL 02/25/18 23:45 Albumin/Globulin Ratio 1.5 (1.0-1.8) 02/25/18 23:45 Urine Source CLEAN C 02/26/18 00:30 Urine Color YELLOW 02/26/18 00:30 Urine Clarity CLEAR (CLEAR) 02/26/18 00:30 Urine pH 6.0 (4.6 - 8.0) 02/26/18 00:30 Ur Specific [place] <= 1.005 (1.005-1.030) 02/26/18 00:30 Urine Protein NEGATIVE mg/dL (NEGATIVE) 02/26/18 00:30 Urine Glucose (UA) NEGATIVE mg/dL (NEGATIVE) 02/26/18 00:30 Urine Ketones NEGATIVE mg/dL (NEGATIVE) 02/26/18 00:30 Urine Blood NEGATIVE (NEGATIVE) 02/26/18 00:30 Urine Nitrate NEGATIVE (NEGATIVE) 02/26/18 00:30 Urine Bilirubin NEGATIVE (NEGATIVE) 02/26/18 00:30 Urine Urobilinogen 0.2 E.U./dL (0.2 - 1.0) 02/26/18 00:30 Ur Leukocyte Esterase NEGATIVE (NEGATIVE) 02/26/18 00:30 Urine RBC NONE SEEN /hpf (0-5) 02/26/18 00:30 Urine WBC NONE SEEN /hpf (0-5) 02/26/18 00:30 Ur Epithelial Cells NONE SEEN /lpf (FEW) 02/26/18 00:30 Urine Bacteria NONE SEEN /hpf (NONE SEEN) 02/26/18 00:30 - Physical Exam Vitals and I&O: Vital Signs Temp 98.4 F 03/03/18 06:11 Pulse 67 03/03/18 09:04 Resp 20 03/03/18 07:41 BP 138/79 03/03/18 09:04 Pulse Ox 98 03/03/18 07:41 Intake & Output 03/02/18 03/03/18 03/03/18 18:59 06:59 18:59 Intake Total 1200 120 Balance 1200 120 Intake: Oral 1200 120 Other: # Voids 2 # Bowel Movements 1 Stool Characteristics Soft Formed Active Medications: Current Medications Albuterol/Ipratropium (Duoneb Neb) 3 ml HHN Q6HRT [facility] Stop: 04/29/18 12:59 Last Admin: 03/03/18 07:41 Dose: Not Given Atorvastatin Calcium (Lipitor) 40 mg PO HS [facility] Stop: 04/27/18 20:59 Last Admin: 03/02/18 21:07 Dose: 40 mg Baclofen (Lioresal) 10 mg PO BID [facility] Stop: 04/27/18 08:59 Last Admin: 03/03/18 09:04 Dose: 10 mg Benazepril HCl (Lotensin) 10 mg PO DAILY [facility] Stop: 04/27/18 08:59 Last Admin: 03/03/18 09:04 Dose: 10 mg Bisacodyl (Dulcolax 10 Mg Supp) 10 mg RC DAILY PRN PRN Reason: Constipation Stop: 04/27/18 02:09 Divalproex Sodium (Depakote Dr) 500 mg PO BID [facility]; Protocol Stop: 04/29/18 22:59 Last Admin: 03/03/18 09:04 Dose: 500 mg Docusate Sodium (Colace) 100 mg PO DAILY [facility] Stop: 04/27/18 08:59 Last Admin: 03/03/18 09:04 Dose: 100 mg Escitalopram Oxalate (Lexapro) 10 mg PO DAILY [facility]; Protocol Stop: 04/27/18 08:59 Last Admin: 03/03/18 09:05 Dose: 10 mg Gabapentin (Neurontin) 300 mg PO BID [facility] Stop: 04/27/18 08:59 Last Admin: 03/03/18 09:04 Dose: 300 mg Hydrocortisone (Anusol-Hc) 25 mg RC Q12HR [facility] Stop: 04/27/18 08:59 Last Admin: 03/02/18 21:07 Dose: 25 mg Levothyroxine Sodium (Synthroid) 0.075 mg PO QDAC [facility] Stop: 04/27/18 07:29 Last Admin: 03/03/18 06:42 Dose: 0.075 mg Lorazepam (Ativan) 0.5 mg PO Q6HR PRN; Protocol PRN Reason: Agitation Stop: 04/27/18 04:47 Last Admin: 02/28/18 10:08 Dose: 0.5 mg Magnesium Hydroxide (Milk Of Magnesia) 30 ml PO HS PRN PRN Reason: Pain (Severe) Stop: 04/27/18 02:09 Mupirocin (Bactroban Oint) 1 appl NS BID [facility] Stop: 03/04/18 09:01 Last Admin: 03/03/18 09:06 Dose: 1 appl Pantoprazole Sodium (Protonix) 40 mg PO QDAC [facility] Stop: 04/27/18 07:29 Last Admin: 03/03/18 06:42 Dose: 40 mg Quetiapine Fumarate (Seroquel) 50 mg PO BID [facility]; Protocol Stop: 04/29/18 22:59 Last Admin: 03/03/18 09:04 Dose: 50 mg Sitagliptin Phosphate (Januvia) 100 mg PO DAILY [facility] Stop: 04/27/18 08:59 Last Admin: 03/03/18 09:04 Dose: 100 mg Sodium Phosphate (Fleet Enema) 135 ml RC Q48HR PRN PRN Reason: Constipation Stop: 04/27/18 02:09 Tramadol HCl (Ultram) 50 mg PO Q6H PRN PRN Reason: Severe Pain Stop: 04/27/18 02:09 Last Admin: 02/26/18 17:31 Dose: 50 mg Zolpidem Tartrate (Ambien) 5 mg PO HS PRN PRN Reason: Insomnia Stop: 04/27/18 04:48 Last Admin: 02/27/18 20:46 Dose: 5 mg
[2018-03-03] MEDS: Atorvastatin Calcium 10 MG TAB PO SCH (20:17)
[2018-03-04] MEDS: Albuterol/Ipratropium Neb 3 ML AERS HHN SCH ×4 (00:23→19:37)
--- NOTE | 2018-03-04 03:23 | Progress Notes ---
DATE: 03/03/2018 SUBJECTIVE: Chart reviewed and the patient interviewed. Also discussed the patient's condition with the staff and reviewed records and labs. The patient is still anxious and her affect is labile. The patient also is still argumentative and she is still paranoid. The patient also is guarded. The patient seems to be less manicky since she is compliant with taking medications with no side effects. She is still hyperverbal and she still has pressured speech. She also still needs redirections. ASSESSMENT: The patient is still manicky, but slowly improving. TREATMENT PLAN: We will continue Depakote as well as we will continue Seroquel, but will increase Seroquel to 75 mg twice a day. Also, we will continue Depakote. Also, we will continue monitoring her behavior and her condition closely. JOB# [id number]
[2018-03-04] MEDS: Pantoprazole 40 mg EC Tab PO SCH (06:32)
[2018-03-04] MEDS: Levothyroxine 0.075 Mg Tab PO SCH (06:32)
--- NOTE | 2018-03-04 15:57 | Progress Notes ---
DATE: SUBJECTIVE: Chart reviewed and the patient interviewed. Also discussed the patient's condition with the staff and reviewed records and labs. The patient continued to be argumentative and easily agitated. The patient also is in irritable and angry mood. The patient also sometimes resisting care and the patient was refusing to shower, but staff had to encourage her to go and take a shower, which she did follow after that. The patient denies any hallucinations but she seems to be preoccupied. The patient also is still hypertalkative and she still has pressured speech. Otherwise, the patient is compliant with taking her medications with no side effects of medications. ASSESSMENT: The patient is still exhibiting manic behavior. TREATMENT PLAN: Continue to monitor the patient's behavior and condition closely. Also, continue to work on her poor impulse control and her irritability. Also, would increase Seroquel to 100 mg twice a day and monitor Depakote blood level. JOB# [id number]
--- NOTE | 2018-03-04 16:03 | Internal Medicine Prog Note ---
Internal Medicine Subjective - Subjective Service Date: 03/04/18 Patient seen and examined:: with staff Patient is:: awake Per staff patient has:: tolerating meds Internal Medicine Objective - Results Result Diagrams: 02/25/18 23:45 02/25/18 23:45 Recent Labs: Laboratory Last Values WBC 8.5 Th/cmm (4.8-10.8) 02/25/18 23:45 RBC 4.20 Mil/cmm (3.80-5.20) 02/25/18 23:45 Hgb 12.9 gm/dL (12-16) 02/25/18 23:45 Hct 38.8 % (41.0-60) L 02/25/18 23:45 MCV 92.5 fl (81-100) 02/25/18 23:45 MCH 30.7 pg (27.0-31.0) 02/25/18 23:45 MCHC Differential 33.2 pg (28.0-36.0) 02/25/18 23:45 RDW 14.0 % (11.5-20.0) 02/25/18 23:45 Plt Count 156 Th/cmm (150-400) 02/25/18 23:45 MPV 8.8 fl 02/25/18 23:45 Neutrophils % 62.6 % (40.0-80.0) 02/25/18 23:45 Lymphocytes % 22.3 % (20.0-50.0) 02/25/18 23:45 Monocytes % 6.6 % (2.0-10.0) 02/25/18 23:45 Eosinophils % 8.1 % (0.0-5.0) H 02/25/18 23:45 Basophils % 0.4 % (0.0-2.0) 02/25/18 23:45 Sodium 137 mEq/L (136-145) 02/25/18 23:45 Potassium 4.1 mEq/L (3.5-5.1) 02/25/18 23:45 Chloride 102 mEq/L (98-107) 02/25/18 23:45 Carbon Dioxide 28.8 mEq/L (21.0-31.0) 02/25/18 23:45 Anion Gap 10.3 (7.0-16.0) 02/25/18 23:45 BUN 12 mg/dL (7-25) 02/25/18 23:45 Creatinine 1.5 mg/dL (0.6-1.2) H 02/25/18 23:45 Est GFR ( Amer) TNP 02/25/18 23:45 Est GFR (Non-Af Amer) TNP 02/25/18 23:45 BUN/Creatinine Ratio 8.0 02/25/18 23:45 Glucose 142 mg/dL (70-105) H 02/25/18 23:45 Calcium 10.3 mg/dL (8.6-10.3) 02/25/18 23:45 Total Bilirubin 0.4 mg/dL (0.3-1.0) 02/25/18 23:45 AST 48 U/L (13-39) H 02/25/18 23:45 ALT 54 U/L (7-52) H 02/25/18 23:45 Alkaline Phosphatase 35 U/L (34-104) 02/25/18 23:45 Total Protein 7.4 gm/dL (6.0-8.3) 02/25/18 23:45 Albumin 4.4 gm/dL (3.7-5.3) 02/25/18 23:45 Globulin 3.0 gm/dL 02/25/18 23:45 Albumin/Globulin Ratio 1.5 (1.0-1.8) 02/25/18 23:45 Urine Source CLEAN C 02/26/18 00:30 Urine Color YELLOW 02/26/18 00:30 Urine Clarity CLEAR (CLEAR) 02/26/18 00:30 Urine pH 6.0 (4.6 - 8.0) 02/26/18 00:30 Ur Specific [place] <= 1.005 (1.005-1.030) 02/26/18 00:30 Urine Protein NEGATIVE mg/dL (NEGATIVE) 02/26/18 00:30 Urine Glucose (UA) NEGATIVE mg/dL (NEGATIVE) 02/26/18 00:30 Urine Ketones NEGATIVE mg/dL (NEGATIVE) 02/26/18 00:30 Urine Blood NEGATIVE (NEGATIVE) 02/26/18 00:30 Urine Nitrate NEGATIVE (NEGATIVE) 02/26/18 00:30 Urine Bilirubin NEGATIVE (NEGATIVE) 02/26/18 00:30 Urine Urobilinogen 0.2 E.U./dL (0.2 - 1.0) 02/26/18 00:30 Ur Leukocyte Esterase NEGATIVE (NEGATIVE) 02/26/18 00:30 Urine RBC NONE SEEN /hpf (0-5) 02/26/18 00:30 Urine WBC NONE SEEN /hpf (0-5) 02/26/18 00:30 Ur Epithelial Cells NONE SEEN /lpf (FEW) 02/26/18 00:30 Urine Bacteria NONE SEEN /hpf (NONE SEEN) 02/26/18 00:30 Valproic Acid 64.5 ug/mL (50.0-100.0) 03/04/18 07:10 - Physical Exam Vitals and I&O: Vital Signs Temp 98.1 F 03/04/18 14:00 Pulse 92 03/04/18 14:00 Resp 20 03/04/18 14:00 BP 119/60 03/04/18 14:00 Pulse Ox 97 03/04/18 14:00 Intake & Output 03/03/18 03/04/18 03/04/18 18:59 06:59 18:59 Intake Total 1200 440 Balance 1200 440 Intake: Oral 1200 440 Other: # Voids 3 2 Stool Characteristics Soft Soft Soft Formed Formed Formed Active Medications: Current Medications Albuterol/Ipratropium (Duoneb Neb) 3 ml HHN Q6HRT [facility] Stop: 04/29/18 12:59 Last Admin: 03/04/18 13:59 Dose: 3 ml Atorvastatin Calcium (Lipitor) 40 mg PO HS [facility] Stop: 04/27/18 20:59 Last Admin: 03/03/18 20:17 Dose: 40 mg Baclofen (Lioresal) 10 mg PO BID [facility] Stop: 04/27/18 08:59 Last Admin: 03/04/18 08:59 Dose: 10 mg Benazepril HCl (Lotensin) 10 mg PO DAILY [facility] Stop: 04/27/18 08:59 Last Admin: 03/04/18 08:59 Dose: 10 mg Bisacodyl (Dulcolax 10 Mg Supp) 10 mg RC DAILY PRN PRN Reason: Constipation Stop: 04/27/18 02:09 Divalproex Sodium (Depakote Dr) 500 mg PO BID [facility]; Protocol Stop: 04/29/18 22:59 Last Admin: 03/04/18 09:00 Dose: 500 mg Docusate Sodium (Colace) 100 mg PO DAILY [facility] Stop: 04/27/18 08:59 Last Admin: 03/04/18 09:01 Dose: 100 mg Escitalopram Oxalate (Lexapro) 10 mg PO DAILY [facility]; Protocol Stop: 04/27/18 08:59 Last Admin: 03/04/18 09:00 Dose: 10 mg Gabapentin (Neurontin) 300 mg PO BID [facility] Stop: 04/27/18 08:59 Last Admin: 03/04/18 09:00 Dose: 300 mg Hydrocortisone (Anusol-Hc) 25 mg RC Q12HR [facility] Stop: 04/27/18 08:59 Last Admin: 03/04/18 10:51 Dose: Not Given Levothyroxine Sodium (Synthroid) 0.075 mg PO QDAC [facility] Stop: 04/27/18 07:29 Last Admin: 03/04/18 06:32 Dose: 0.075 mg Lorazepam (Ativan) 0.5 mg PO Q6HR PRN; Protocol PRN Reason: Agitation Stop: 04/27/18 04:47 Last Admin: 02/28/18 10:08 Dose: 0.5 mg Magnesium Hydroxide (Milk Of Magnesia) 30 ml PO HS PRN PRN Reason: Pain (Severe) Stop: 04/27/18 02:09 Pantoprazole Sodium (Protonix) 40 mg PO QDAC [facility] Stop: 04/27/18 07:29 Last Admin: 03/04/18 06:32 Dose: 40 mg Quetiapine Fumarate (Seroquel) 100 mg PO BID [facility]; Protocol Stop: 05/03/18 08:59 Last Admin: 03/04/18 09:00 Dose: 100 mg Sitagliptin Phosphate (Januvia) 100 mg PO DAILY [facility] Stop: 04/27/18 08:59 Last Admin: 03/04/18 09:01 Dose: 100 mg Sodium Phosphate (Fleet Enema) 135 ml RC Q48HR PRN PRN Reason: Constipation Stop: 04/27/18 02:09 Tramadol HCl (Ultram) 50 mg PO Q6H PRN PRN Reason: Severe Pain Stop: 04/27/18 02:09 Last Admin: 02/26/18 17:31 Dose: 50 mg Zolpidem Tartrate (Ambien) 5 mg PO HS PRN PRN Reason: Insomnia Stop: 04/27/18 04:48 Last Admin: 03/03/18 21:44 Dose: 5 mg General: alert HEENT: NC/AT, PERRLA Neck: Supple Lungs: CTAB Cardiovascular: RRR, Normal S1, without murmur Abdomen: soft, non-tender, non-distended, positive bowel sound Extremities: other (bl foot edema +3) Internal Medicine Assmt/Plan - Assessment Assessment: bilateral lower ext swelling bipolar disorder asthma hyperlipidemia oa htn depression neuropathy hypothyroidism gerd dm - Plan Plan: ble u/s lasix x1 fall precautions cpm Nutritional Asmnt/Malnutr-PDOC - Dietary Evaluation Malnutrition Findings (Please click <Entered> for more info): Nutritional Asmnt/Malnutrition Start: 03/03/18 14: 03 Text: Status: Complete Freq: Protocol: Document 03/03/18 14:03 [email or web address] (Rec: 03/03/18 14:19 [email or web address] [email or web address]) Nutritional Asmnt/Malnutrition Patient General Information Nutritional Screening Moderate Risk Diagnosis psychosis Pertinent Medical Hx/Surgical Hx asthma, HTN, neuropahty, hypothyroidism, GERD, DM, OA, bipolar Subjective Information Pt seen eating in dinning room . Pt stated food looked good so far. Per EMR, PO intake 100 % of meals. Current Diet Order/ Nutrition Support 2500 jaqui ADA Pertinent Medications colace, synthorid, protonix, seroquel, januvia Pertinent Labs 02/25 Cr 1.5, glucose 142 Nutritional Hx/Data Height 5 ft 6 in Height (Calculated Centimeters) 167.6 Current Weight (lbs) 205 lb Weight (Calculated Kilograms) 93.0 Weight (Calculated Grams) 86050.4 [place] Body Weight 130 Body Mass Index (BMI) 33.0 Weight Status Obese GI Symptoms GI Symptoms None Last BM 03/02 Difficult in: None Skin Integrity/Comment: intact bilateral lower legs swelling +2 per nurse note Current %PO Good (75-100%) Estimated Nutritional Goals BEE in Kcals: Adj wt of IBW Calories/Kcals/Kg 25-30 Kcals Calculated [id number] Protein: Adj wt of IBW Protein g/k-1.2 Protein Calculated 68-82 Fluid: ml 1700-2040ml (1ml/kcal) Nutritional Problem 1. Problem Problem altered nutrition related labs Etiology hx of DM Signs/Symptoms: glucose 142 Malnutrition Alert Is there a minimum of two criteria No selected? Query Text:Check all the applicable criteria. A minimum of two criteria are recommended for diagnosis of either severe or non-severe malnutrition. Malnutrition Related to Morbid Obesity Malnutrition related to morbid obesity No Intervention/Recommendation Comments 1. Recommend [id number] (1800 ADA) diet considering obese. RICARDO Last notified, will contact doctor. 2. Monitor PO intake, wt, labs and skin integrity 3. F/U as low risk in 7 days, 03/10 Expected Outcomes/Goals Expected Outcomes/Goals 1. PO intake to meet at least 75% of nutritional needs. 2. Wt stability, skin to remain intact, labs to approach WNL.
[2018-03-04] MEDS: Atorvastatin Calcium 10 MG TAB PO SCH (21:10)
[2018-03-05] MEDS: Albuterol/Ipratropium Neb 3 ML AERS HHN SCH ×4 (06:40→19:20)
[2018-03-05] MEDS: Pantoprazole 40 mg EC Tab PO SCH (06:49)
[2018-03-05] MEDS: Levothyroxine 0.075 Mg Tab PO SCH (06:49)
--- NOTE | 2018-03-05 18:09 | Progress Notes ---
DATE: 03/05/2018 SUBJECTIVE: Chart reviewed and the patient interviewed. Also discussed the patient's condition with the staff and reviewed records and labs. The patient is still in irritable and angry mood. The patient also is still resisting care and easily agitated. The patient also seems to be suspicious and paranoid. On the other hand, the patient is compliant with taking her medications with no side effects of medications. Seroquel was increased to 100 mg twice a day. ASSESSMENT: The patient is still psychotic. TREATMENT PLAN: Continue monitoring her behavior. Continue Seroquel and Depakote and continue adjusting psychotropic medications and we will continue to follow up. JOB# [id number]
[2018-03-05] MEDS: Atorvastatin Calcium 10 MG TAB PO SCH (20:49)
[2018-03-06] MEDS: Albuterol/Ipratropium Neb 3 ML AERS HHN SCH ×4 (00:02→18:49)
[2018-03-06] MEDS: Albuterol/Ipratropium Neb 3 ML AERS HHN PRN (03:03)
[2018-03-06] MEDS: Levothyroxine 0.075 Mg Tab PO SCH (06:32)
[2018-03-06] MEDS: Pantoprazole 40 mg EC Tab PO SCH (06:32)
--- NOTE | 2018-03-06 09:35 | Diagnostic Imaging Report ---
Bilateral lower extremity DVT study HISTORY: Pain COMPARISON: None Technique: Longitudinal and transverse sonographic images of the bilateral lower extremity veins were obtained with doppler analysis. FINDINGS: There is normal compressibility, augmentation and phasicity of the right common femoral, superficial femoral, popliteal, and posterior tibial veins. No thrombus is visualized. There is avascular cystic lesion along the right popliteal area measuring 2.3 x 2.2 cm. Exam of the left side demonstrates patency of the left common femoral and superficial femoral veins with no evidence of DVT formation. Thrombus is visualized in the left popliteal vein. The left posterior tibial and peroneal veins are not well visualized. IMPRESSION: Positive DVT study with thrombus visualized in the right popliteal vein. The right posterior tibial and right peroneal veins are not visualized. 2.3 x 2.2 cm cystic lesion of the left popliteal fossa. 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 If necessary MRI follow-up may be obtained. Results were relayed to the referring team following the examination.
--- NOTE | 2018-03-06 11:41 | General Progress Note ---
Subjective - Review of Systems Events since last encounter: patient still psychotic confused Objective - Results Result Diagrams: 02/25/18 23:45 02/25/18 23:45 Recent Labs: Laboratory Last Values WBC 8.5 Th/cmm (4.8-10.8) 02/25/18 23:45 RBC 4.20 Mil/cmm (3.80-5.20) 02/25/18 23:45 Hgb 12.9 gm/dL (12-16) 02/25/18 23:45 Hct 38.8 % (41.0-60) L 02/25/18 23:45 MCV 92.5 fl (81-100) 02/25/18 23:45 MCH 30.7 pg (27.0-31.0) 02/25/18 23:45 MCHC Differential 33.2 pg (28.0-36.0) 02/25/18 23:45 RDW 14.0 % (11.5-20.0) 02/25/18 23:45 Plt Count 156 Th/cmm (150-400) 02/25/18 23:45 MPV 8.8 fl 02/25/18 23:45 Neutrophils % 62.6 % (40.0-80.0) 02/25/18 23:45 Lymphocytes % 22.3 % (20.0-50.0) 02/25/18 23:45 Monocytes % 6.6 % (2.0-10.0) 02/25/18 23:45 Eosinophils % 8.1 % (0.0-5.0) H 02/25/18 23:45 Basophils % 0.4 % (0.0-2.0) 02/25/18 23:45 Sodium 137 mEq/L (136-145) 02/25/18 23:45 Potassium 4.1 mEq/L (3.5-5.1) 02/25/18 23:45 Chloride 102 mEq/L (98-107) 02/25/18 23:45 Carbon Dioxide 28.8 mEq/L (21.0-31.0) 02/25/18 23:45 Anion Gap 10.3 (7.0-16.0) 02/25/18 23:45 BUN 12 mg/dL (7-25) 02/25/18 23:45 Creatinine 1.5 mg/dL (0.6-1.2) H 02/25/18 23:45 Est GFR ( Amer) TNP 02/25/18 23:45 Est GFR (Non-Af Amer) TNP 02/25/18 23:45 BUN/Creatinine Ratio 8.0 02/25/18 23:45 Glucose 142 mg/dL (70-105) H 02/25/18 23:45 Calcium 10.3 mg/dL (8.6-10.3) 02/25/18 23:45 Total Bilirubin 0.4 mg/dL (0.3-1.0) 02/25/18 23:45 AST 48 U/L (13-39) H 02/25/18 23:45 ALT 54 U/L (7-52) H 02/25/18 23:45 Alkaline Phosphatase 35 U/L (34-104) 02/25/18 23:45 Total Protein 7.4 gm/dL (6.0-8.3) 02/25/18 23:45 Albumin 4.4 gm/dL (3.7-5.3) 02/25/18 23:45 Globulin 3.0 gm/dL 02/25/18 23:45 Albumin/Globulin Ratio 1.5 (1.0-1.8) 02/25/18 23:45 Urine Source CLEAN C 02/26/18 00:30 Urine Color YELLOW 02/26/18 00:30 Urine Clarity CLEAR (CLEAR) 02/26/18 00:30 Urine pH 6.0 (4.6 - 8.0) 02/26/18 00:30 Ur Specific [place] <= 1.005 (1.005-1.030) 02/26/18 00:30 Urine Protein NEGATIVE mg/dL (NEGATIVE) 02/26/18 00:30 Urine Glucose (UA) NEGATIVE mg/dL (NEGATIVE) 02/26/18 00:30 Urine Ketones NEGATIVE mg/dL (NEGATIVE) 02/26/18 00:30 Urine Blood NEGATIVE (NEGATIVE) 02/26/18 00:30 Urine Nitrate NEGATIVE (NEGATIVE) 02/26/18 00:30 Urine Bilirubin NEGATIVE (NEGATIVE) 02/26/18 00:30 Urine Urobilinogen 0.2 E.U./dL (0.2 - 1.0) 02/26/18 00:30 Ur Leukocyte Esterase NEGATIVE (NEGATIVE) 02/26/18 00:30 Urine RBC NONE SEEN /hpf (0-5) 02/26/18 00:30 Urine WBC NONE SEEN /hpf (0-5) 02/26/18 00:30 Ur Epithelial Cells NONE SEEN /lpf (FEW) 02/26/18 00:30 Urine Bacteria NONE SEEN /hpf (NONE SEEN) 02/26/18 00:30 Valproic Acid 64.5 ug/mL (50.0-100.0) 03/04/18 07:10 - Physical Exam Vitals and I&O: Vital Signs Temp 98 F 03/06/18 08:00 Pulse 66 03/06/18 08:33 Resp 20 03/06/18 08:00 BP 131/72 03/06/18 08:33 Pulse Ox 97 03/06/18 08:00 Intake & Output 03/05/18 03/06/18 03/06/18 18:59 06:59 18:59 Intake Total 1100 480 Output Total 3 Balance 1097 480 Intake: Oral 1100 480 Output: Urine 3 Other: # Voids 1 # Bowel Movements 1 Stool Characteristics Soft Soft Soft Formed Formed Formed Active Medications: Current Medications Albuterol/Ipratropium (Duoneb Neb) 3 ml HHN Q6HRT [facility] Stop: 04/29/18 12:59 Last Admin: 03/06/18 07:23 Dose: 3 ml Albuterol/Ipratropium (Duoneb Neb) 3 ml HHN Q2HRT PRN PRN Reason: Shortness of Breath Stop: 05/05/18 02:36 Last Admin: 03/06/18 03:03 Dose: 3 ml Atorvastatin Calcium (Lipitor) 40 mg PO HS [facility] Stop: 04/27/18 20:59 Last Admin: 03/05/18 20:49 Dose: 40 mg Baclofen (Lioresal) 10 mg PO BID [facility] Stop: 04/27/18 08:59 Last Admin: 03/06/18 08:35 Dose: 10 mg Benazepril HCl (Lotensin) 10 mg PO DAILY [facility] Stop: 04/27/18 08:59 Last Admin: 03/06/18 08:33 Dose: 10 mg Bisacodyl (Dulcolax 10 Mg Supp) 10 mg RC DAILY PRN PRN Reason: Constipation Stop: 04/27/18 02:09 Divalproex Sodium (Depakote Dr) 500 mg PO BID [facility]; Protocol Stop: 04/29/18 22:59 Last Admin: 03/06/18 08:35 Dose: 500 mg Docusate Sodium (Colace) 100 mg PO DAILY [facility] Stop: 04/27/18 08:59 Last Admin: 03/06/18 08:32 Dose: 100 mg Escitalopram Oxalate (Lexapro) 10 mg PO DAILY [facility]; Protocol Stop: 04/27/18 08:59 Last Admin: 03/06/18 08:35 Dose: 10 mg Gabapentin (Neurontin) 300 mg PO BID [facility] Stop: 04/27/18 08:59 Last Admin: 03/06/18 08:32 Dose: 300 mg Hydrocortisone (Anusol-Hc) 25 mg RC Q12HR [facility] Stop: 04/27/18 08:59 Last Admin: 03/06/18 08:35 Dose: 25 mg Levothyroxine Sodium (Synthroid) 0.075 mg PO QDAC [facility] Stop: 04/27/18 07:29 Last Admin: 03/06/18 06:32 Dose: 0.075 mg Lorazepam (Ativan) 0.5 mg PO Q6HR PRN; Protocol PRN Reason: Agitation Stop: 04/27/18 04:47 Last Admin: 02/28/18 10:08 Dose: 0.5 mg Magnesium Hydroxide (Milk Of Magnesia) 30 ml PO HS PRN PRN Reason: Pain (Severe) Stop: 04/27/18 02:09 Pantoprazole Sodium (Protonix) 40 mg PO QDAC [facility] Stop: 04/27/18 07:29 Last Admin: 03/06/18 06:32 Dose: 40 mg Quetiapine Fumarate (Seroquel) 100 mg PO BID [facility]; Protocol Stop: 05/03/18 08:59 Last Admin: 03/06/18 08:33 Dose: 100 mg Sitagliptin Phosphate (Januvia) 100 mg PO DAILY [facility] Stop: 04/27/18 08:59 Last Admin: 03/06/18 08:32 Dose: 100 mg Sodium Phosphate (Fleet Enema) 135 ml RC Q48HR PRN PRN Reason: Constipation Stop: 04/27/18 02:09 Zolpidem Tartrate (Ambien) 5 mg PO HS PRN PRN Reason: Insomnia Stop: 04/27/18 04:48 Last Admin: 03/05/18 20:49 Dose: 5 mg Nutritional Asmnt/Malnutr-PDOC - Dietary Evaluation Malnutrition Findings (Please click <Entered> for more info): Nutritional Asmnt/Malnutrition Start: 03/03/18 14: 03 Text: Status: Complete Freq: Protocol: Document 03/03/18 14:03 LCHENG (Rec: 03/03/18 14:19 LCTKG [id number]) Nutritional Asmnt/Malnutrition Patient General Information Nutritional Screening Moderate Risk Diagnosis psychosis Pertinent Medical Hx/Surgical Hx asthma, HTN, neuropahty, hypothyroidism, GERD, DM, OA, bipolar Subjective Information Pt seen eating in dinning room . Pt stated food looked good so far. Per EMR, PO intake 100 % of meals. Current Diet Order/ Nutrition Support 2500 jaqui ADA Pertinent Medications colace, synthorid, protonix, seroquel, januvia Pertinent Labs 02/25 Cr 1.5, glucose 142 Nutritional Hx/Data Height 1.68 m Height (Calculated Centimeters) 167.6 Current Weight (lbs) 92.986 kg Weight (Calculated Kilograms) 93.0 Weight (Calculated Grams) 57670.4 [place] Body Weight 130 Body Mass Index (BMI) 33.0 Weight Status Obese GI Symptoms GI Symptoms None Last BM 03/02 Difficult in: None Skin Integrity/Comment: intact bilateral lower legs swelling +2 per nurse note Current %PO Good (75-100%) Estimated Nutritional Goals BEE in Kcals: Adj wt of IBW Calories/Kcals/Kg 25-30 Kcals Calculated 4090-5983 Protein: Adj wt of IBW Protein g/k-1.2 Protein Calculated 68-82 Fluid: ml 1700-2040ml (1ml/kcal) Nutritional Problem 1. Problem Problem altered nutrition related labs Etiology hx of DM Signs/Symptoms: glucose 142 Malnutrition Alert Is there a minimum of two criteria No selected? Query Text:Check all the applicable criteria. A minimum of two criteria are recommended for diagnosis of either severe or non-severe malnutrition. Malnutrition Related to Morbid Obesity Malnutrition related to morbid obesity No Intervention/Recommendation Comments 1. Recommend [id number] (1800 ADA) diet considering obese. RICARDO Last notified, will contact doctor. 2. Monitor PO intake, wt, labs and skin integrity 3. F/U as low risk in 7 days, 03/10 Expected Outcomes/Goals Expected Outcomes/Goals 1. PO intake to meet at least 75% of nutritional needs. 2. Wt stability, skin to remain intact, labs to approach WNL.
[2018-03-06] MEDS ORDERED: Enoxaparin Subq per Pharmacy MC SCH (14:00)
[2018-03-06] MEDS: Enoxaparin 80 mg/0.8 mL 0.8mL Syr SUBQ SCH (16:19)
[2018-03-06] MEDS: Atorvastatin Calcium 10 MG TAB PO SCH (21:36)
[2018-03-07] MEDS: Albuterol/Ipratropium Neb 3 ML AERS HHN SCH ×4 (01:54→18:44)
[2018-03-07] MEDS: Enoxaparin 80 mg/0.8 mL 0.8mL Syr SUBQ SCH ×2 (03:56→14:06)
[2018-03-07] MEDS: Pantoprazole 40 mg EC Tab PO SCH (06:56)
[2018-03-07] MEDS: Levothyroxine 0.075 Mg Tab PO SCH (06:56)
--- NOTE | 2018-03-07 16:00 | General Progress Note ---
Subjective - Review of Systems Events since last encounter: no distress Objective - Results Result Diagrams: 02/25/18 23:45 02/25/18 23:45 Recent Labs: Laboratory Last Values WBC 8.5 Th/cmm (4.8-10.8) 02/25/18 23:45 RBC 4.20 Mil/cmm (3.80-5.20) 02/25/18 23:45 Hgb 12.9 gm/dL (12-16) 02/25/18 23:45 Hct 38.8 % (41.0-60) L 02/25/18 23:45 MCV 92.5 fl (81-100) 02/25/18 23:45 MCH 30.7 pg (27.0-31.0) 02/25/18 23:45 MCHC Differential 33.2 pg (28.0-36.0) 02/25/18 23:45 RDW 14.0 % (11.5-20.0) 02/25/18 23:45 Plt Count 156 Th/cmm (150-400) 02/25/18 23:45 MPV 8.8 fl 02/25/18 23:45 Neutrophils % 62.6 % (40.0-80.0) 02/25/18 23:45 Lymphocytes % 22.3 % (20.0-50.0) 02/25/18 23:45 Monocytes % 6.6 % (2.0-10.0) 02/25/18 23:45 Eosinophils % 8.1 % (0.0-5.0) H 02/25/18 23:45 Basophils % 0.4 % (0.0-2.0) 02/25/18 23:45 Sodium 137 mEq/L (136-145) 02/25/18 23:45 Potassium 4.1 mEq/L (3.5-5.1) 02/25/18 23:45 Chloride 102 mEq/L (98-107) 02/25/18 23:45 Carbon Dioxide 28.8 mEq/L (21.0-31.0) 02/25/18 23:45 Anion Gap 10.3 (7.0-16.0) 02/25/18 23:45 BUN 12 mg/dL (7-25) 02/25/18 23:45 Creatinine 1.5 mg/dL (0.6-1.2) H 02/25/18 23:45 Est GFR ( Amer) TNP 02/25/18 23:45 Est GFR (Non-Af Amer) TNP 02/25/18 23:45 BUN/Creatinine Ratio 8.0 02/25/18 23:45 Glucose 142 mg/dL (70-105) H 02/25/18 23:45 Calcium 10.3 mg/dL (8.6-10.3) 02/25/18 23:45 Total Bilirubin 0.4 mg/dL (0.3-1.0) 02/25/18 23:45 AST 48 U/L (13-39) H 02/25/18 23:45 ALT 54 U/L (7-52) H 02/25/18 23:45 Alkaline Phosphatase 35 U/L (34-104) 02/25/18 23:45 Total Protein 7.4 gm/dL (6.0-8.3) 02/25/18 23:45 Albumin 4.4 gm/dL (3.7-5.3) 02/25/18 23:45 Globulin 3.0 gm/dL 02/25/18 23:45 Albumin/Globulin Ratio 1.5 (1.0-1.8) 02/25/18 23:45 Urine Source CLEAN C 02/26/18 00:30 Urine Color YELLOW 02/26/18 00:30 Urine Clarity CLEAR (CLEAR) 02/26/18 00:30 Urine pH 6.0 (4.6 - 8.0) 02/26/18 00:30 Ur Specific [place] <= 1.005 (1.005-1.030) 02/26/18 00:30 Urine Protein NEGATIVE mg/dL (NEGATIVE) 02/26/18 00:30 Urine Glucose (UA) NEGATIVE mg/dL (NEGATIVE) 02/26/18 00:30 Urine Ketones NEGATIVE mg/dL (NEGATIVE) 02/26/18 00:30 Urine Blood NEGATIVE (NEGATIVE) 02/26/18 00:30 Urine Nitrate NEGATIVE (NEGATIVE) 02/26/18 00:30 Urine Bilirubin NEGATIVE (NEGATIVE) 02/26/18 00:30 Urine Urobilinogen 0.2 E.U./dL (0.2 - 1.0) 02/26/18 00:30 Ur Leukocyte Esterase NEGATIVE (NEGATIVE) 02/26/18 00:30 Urine RBC NONE SEEN /hpf (0-5) 02/26/18 00:30 Urine WBC NONE SEEN /hpf (0-5) 02/26/18 00:30 Ur Epithelial Cells NONE SEEN /lpf (FEW) 02/26/18 00:30 Urine Bacteria NONE SEEN /hpf (NONE SEEN) 02/26/18 00:30 Valproic Acid 64.5 ug/mL (50.0-100.0) 03/04/18 07:10 - Physical Exam Vitals and I&O: Vital Signs Temp 97.0 F 03/07/18 15:56 Pulse 85 03/07/18 15:56 Resp 20 03/07/18 15:56 BP 144/65 03/07/18 15:56 Pulse Ox 97 03/07/18 15:56 Intake & Output 03/06/18 03/07/18 03/07/18 18:59 06:59 18:59 Intake Total 1200 360 Balance 1200 360 Intake: Oral 1200 360 Other: # Voids 3 1 # Bowel Movements 1 Stool Characteristics Soft Soft Formed Formed Active Medications: Current Medications Albuterol/Ipratropium (Duoneb Neb) 3 ml HHN Q6HRT [facility] Stop: 04/29/18 12:59 Last Admin: 03/07/18 12:11 Dose: 3 ml Albuterol/Ipratropium (Duoneb Neb) 3 ml HHN Q2HRT PRN PRN Reason: Shortness of Breath Stop: 05/05/18 02:36 Last Admin: 03/06/18 03:03 Dose: 3 ml Atorvastatin Calcium (Lipitor) 40 mg PO HS [facility] Stop: 05/06/18 20:59 Baclofen (Lioresal) 10 mg PO BID [facility] Stop: 04/27/18 08:59 Last Admin: 03/07/18 09:20 Dose: 10 mg Benazepril HCl (Lotensin) 10 mg PO DAILY [facility] Stop: 04/27/18 08:59 Last Admin: 03/07/18 09:21 Dose: 10 mg Bisacodyl (Dulcolax 10 Mg Supp) 10 mg RC DAILY PRN PRN Reason: Constipation Stop: 04/27/18 02:09 Divalproex Sodium (Depakote Dr) 500 mg PO BID [facility]; Protocol Stop: 04/29/18 22:59 Last Admin: 03/07/18 09:19 Dose: 500 mg Docusate Sodium (Colace) 100 mg PO DAILY [facility] Stop: 04/27/18 08:59 Last Admin: 03/07/18 09:20 Dose: 100 mg Enoxaparin Sodium (Lovenox) 70 mg SUBQ Q12HR [facility] Stop: 05/07/18 08:59 Escitalopram Oxalate (Lexapro) 10 mg PO DAILY [facility]; Protocol Stop: 04/27/18 08:59 Last Admin: 03/07/18 09:20 Dose: 10 mg Gabapentin (Neurontin) 300 mg PO BID [facility] Stop: 04/27/18 08:59 Last Admin: 03/07/18 09:20 Dose: 300 mg Hydrocortisone (Anusol-Hc) 25 mg RC Q12HR [facility] Stop: 04/27/18 08:59 Last Admin: 03/07/18 09:22 Dose: Not Given Levothyroxine Sodium (Synthroid) 0.075 mg PO QDAC [facility] Stop: 04/27/18 07:29 Last Admin: 03/07/18 06:56 Dose: 0.075 mg Lorazepam (Ativan) 0.5 mg PO Q6HR PRN; Protocol PRN Reason: Agitation Stop: 04/27/18 04:47 Last Admin: 03/06/18 14:09 Dose: 0.5 mg Magnesium Hydroxide (Milk Of Magnesia) 30 ml PO HS PRN PRN Reason: Pain (Severe) Stop: 04/27/18 02:09 Miscellaneous (Lovenox Subq Per Pharmacy) 1 ea MC PRN [facility]; Protocol Stop: 05/05/18 13:59 Pantoprazole Sodium (Protonix) 40 mg PO QDAC [facility] Stop: 04/27/18 07:29 Last Admin: 03/07/18 06:56 Dose: 40 mg Quetiapine Fumarate (Seroquel) 100 mg PO BID [facility]; Protocol Stop: 05/03/18 08:59 Last Admin: 03/07/18 09:19 Dose: 100 mg Sitagliptin Phosphate (Januvia) 100 mg PO DAILY [facility] Stop: 04/27/18 08:59 Last Admin: 03/07/18 09:19 Dose: 100 mg Sodium Phosphate (Fleet Enema) 135 ml RC Q48HR PRN PRN Reason: Constipation Stop: 04/27/18 02:09 Zolpidem Tartrate (Ambien) 5 mg PO HS PRN PRN Reason: Insomnia Stop: 04/27/18 04:48 Last Admin: 03/06/18 21:37 Dose: 5 mg Nutritional Asmnt/Malnutr-PDOC - Dietary Evaluation Malnutrition Findings (Please click <Entered> for more info): Nutritional Asmnt/Malnutrition Start: 03/03/18 14: 03 Text: Status: Complete Freq: Protocol: Document 03/03/18 14:03 LCTKG (Rec: 03/03/18 14:19 LCHEN [id number]) Nutritional Asmnt/Malnutrition Patient General Information Nutritional Screening Moderate Risk Diagnosis psychosis Pertinent Medical Hx/Surgical Hx asthma, HTN, neuropahty, hypothyroidism, GERD, DM, OA, bipolar Subjective Information Pt seen eating in dinning room . Pt stated food looked good so far. Per EMR, PO intake 100 % of meals. Current Diet Order/ Nutrition Support 2500 jaqui ADA Pertinent Medications colace, synthorid, protonix, seroquel, januvia Pertinent Labs 02/25 Cr 1.5, glucose 142 Nutritional Hx/Data Height 1.68 m Height (Calculated Centimeters) 167.6 Current Weight (lbs) 92.986 kg Weight (Calculated Kilograms) 93.0 Weight (Calculated Grams) 09909.4 [place] Body Weight 130 Body Mass Index (BMI) 33.0 Weight Status Obese GI Symptoms GI Symptoms None Last BM 03/02 Difficult in: None Skin Integrity/Comment: intact bilateral lower legs swelling +2 per nurse note Current %PO Good (75-100%) Estimated Nutritional Goals BEE in Kcals: Adj wt of IBW Calories/Kcals/Kg 25-30 Kcals Calculated 4804-9564 Protein: Adj wt of IBW Protein g/k-1.2 Protein Calculated 68-82 Fluid: ml 1700-2040ml (1ml/kcal) Nutritional Problem 1. Problem Problem altered nutrition related labs Etiology hx of DM Signs/Symptoms: glucose 142 Malnutrition Alert Is there a minimum of two criteria No selected? Query Text:Check all the applicable criteria. A minimum of two criteria are recommended for diagnosis of either severe or non-severe malnutrition. Malnutrition Related to Morbid Obesity Malnutrition related to morbid obesity No Intervention/Recommendation Comments 1. Recommend [id number] (1800 ADA) diet considering obese. RICARDO Last notified, will contact doctor. 2. Monitor PO intake, wt, labs and skin integrity 3. F/U as low risk in 7 days, 03/10 Expected Outcomes/Goals Expected Outcomes/Goals 1. PO intake to meet at least 75% of nutritional needs. 2. Wt stability, skin to remain intact, labs to approach WNL.
--- NOTE | 2018-03-07 21:31 | Progress Notes ---
DATE: 03/06/2018 SUBJECTIVE: Chart reviewed and the patient interviewed. Also discussed the patient's condition with the staff and reviewed reports and labs. The patient is still withdrawn and she is still in a depressed mood. The patient also is said to have episodes of agitation and irritability. The patient also feels hopeless and helpless at times. She still has manic behavior and today she is having a wheelchair, pushing it, not sitting on it, saying that she cannot walk. She still has severe mood swings and she is . On the other hand, the patient continued to comply with taking her medications with no side effects of medications. ASSESSMENT: The patient is less manicky. TREATMENT PLAN: Continue to monitor her behavior and her condition closely. Also, continue to adjust psychotropic medications and work on behavioral modification and . JOB# [id number]
[2018-03-07] MEDS: Albuterol/Ipratropium Neb 3 ML AERS HHN PRN (22:11)
[2018-03-08] MEDS: Albuterol/Ipratropium Neb 3 ML AERS HHN SCH ×4 (00:35→18:53)
[2018-03-08] MEDS ORDERED: Enoxaparin 100 mg/mL 1mL Syr SUBQ SCH (02:00)
--- NOTE | 2018-03-08 02:29 | Progress Notes ---
DATE: 03/07/[address] Rivera. SUBJECTIVE: Case was discussed with staff of the patient and reviewed records. This is an 82-year-old female who was admitted on the 02/26/2018. She was manic, irritable, and aggressive. She came from [facility]. The patient is with a history of bipolar disorder. She was very hard to redirect. She is unpredictable, impulsive and intrusive, unable to make safe plan for her self-care or participate in meaningful conversation. Dr. Rivera has her on Depakote 500 mg twice a day, Lexapro 10 mg daily, and Seroquel 100 mg twice a day that was added over the weekend and increased. ASSESSMENT AND PLAN: She is unpredictable, impulsive, needing redirection, looking disheveled, disorganized, and internally preoccupied. We will continue have the patient in group therapy, milieu therapy, and adjust the medications as needed. JOB# [id number]
[2018-03-08] MEDS: Albuterol/Ipratropium Neb 3 ML AERS HHN PRN (05:43)
[2018-03-08] MEDS: Pantoprazole 40 mg EC Tab PO SCH (06:47)
[2018-03-08] MEDS: Levothyroxine 0.075 Mg Tab PO SCH (06:47)
[2018-03-08] MEDS: Enoxaparin 100 mg/mL 1mL Syr SUBQ SCH (08:55)
[2018-03-08] MEDS ORDERED: Enoxaparin 80 mg/0.8 mL 0.8mL Syr SUBQ SCH (09:00)
--- NOTE | 2018-03-08 21:26 | General Progress Note ---
Subjective - Review of Systems Service Date: 03/08/18 Subjective: no overnight events. nad Objective - Results Result Diagrams: 02/25/18 23:45 02/25/18 23:45 Recent Labs: Laboratory Last Values WBC 8.5 Th/cmm (4.8-10.8) 02/25/18 23:45 RBC 4.20 Mil/cmm (3.80-5.20) 02/25/18 23:45 Hgb 12.9 gm/dL (12-16) 02/25/18 23:45 Hct 38.8 % (41.0-60) L 02/25/18 23:45 MCV 92.5 fl (81-100) 02/25/18 23:45 MCH 30.7 pg (27.0-31.0) 02/25/18 23:45 MCHC Differential 33.2 pg (28.0-36.0) 02/25/18 23:45 RDW 14.0 % (11.5-20.0) 02/25/18 23:45 Plt Count 156 Th/cmm (150-400) 02/25/18 23:45 MPV 8.8 fl 02/25/18 23:45 Neutrophils % 62.6 % (40.0-80.0) 02/25/18 23:45 Lymphocytes % 22.3 % (20.0-50.0) 02/25/18 23:45 Monocytes % 6.6 % (2.0-10.0) 02/25/18 23:45 Eosinophils % 8.1 % (0.0-5.0) H 02/25/18 23:45 Basophils % 0.4 % (0.0-2.0) 02/25/18 23:45 Sodium 137 mEq/L (136-145) 02/25/18 23:45 Potassium 4.1 mEq/L (3.5-5.1) 02/25/18 23:45 Chloride 102 mEq/L (98-107) 02/25/18 23:45 Carbon Dioxide 28.8 mEq/L (21.0-31.0) 02/25/18 23:45 Anion Gap 10.3 (7.0-16.0) 02/25/18 23:45 BUN 12 mg/dL (7-25) 02/25/18 23:45 Creatinine 1.5 mg/dL (0.6-1.2) H 02/25/18 23:45 Est GFR ( Amer) TNP 02/25/18 23:45 Est GFR (Non-Af Amer) TNP 02/25/18 23:45 BUN/Creatinine Ratio 8.0 02/25/18 23:45 Glucose 142 mg/dL (70-105) H 02/25/18 23:45 Calcium 10.3 mg/dL (8.6-10.3) 02/25/18 23:45 Total Bilirubin 0.4 mg/dL (0.3-1.0) 02/25/18 23:45 AST 48 U/L (13-39) H 02/25/18 23:45 ALT 54 U/L (7-52) H 02/25/18 23:45 Alkaline Phosphatase 35 U/L (34-104) 02/25/18 23:45 Total Protein 7.4 gm/dL (6.0-8.3) 02/25/18 23:45 Albumin 4.4 gm/dL (3.7-5.3) 02/25/18 23:45 Globulin 3.0 gm/dL 02/25/18 23:45 Albumin/Globulin Ratio 1.5 (1.0-1.8) 02/25/18 23:45 Urine Source CLEAN C 02/26/18 00:30 Urine Color YELLOW 02/26/18 00:30 Urine Clarity CLEAR (CLEAR) 02/26/18 00:30 Urine pH 6.0 (4.6 - 8.0) 02/26/18 00:30 Ur Specific [place] <= 1.005 (1.005-1.030) 02/26/18 00:30 Urine Protein NEGATIVE mg/dL (NEGATIVE) 02/26/18 00:30 Urine Glucose (UA) NEGATIVE mg/dL (NEGATIVE) 02/26/18 00:30 Urine Ketones NEGATIVE mg/dL (NEGATIVE) 02/26/18 00:30 Urine Blood NEGATIVE (NEGATIVE) 02/26/18 00:30 Urine Nitrate NEGATIVE (NEGATIVE) 02/26/18 00:30 Urine Bilirubin NEGATIVE (NEGATIVE) 02/26/18 00:30 Urine Urobilinogen 0.2 E.U./dL (0.2 - 1.0) 02/26/18 00:30 Ur Leukocyte Esterase NEGATIVE (NEGATIVE) 02/26/18 00:30 Urine RBC NONE SEEN /hpf (0-5) 02/26/18 00:30 Urine WBC NONE SEEN /hpf (0-5) 02/26/18 00:30 Ur Epithelial Cells NONE SEEN /lpf (FEW) 02/26/18 00:30 Urine Bacteria NONE SEEN /hpf (NONE SEEN) 02/26/18 00:30 Valproic Acid 64.5 ug/mL (50.0-100.0) 03/04/18 07:10 - Physical Exam Vitals and I&O: Vital Signs Temp 98.6 F 03/08/18 14:48 Pulse 88 03/08/18 18:54 Resp 20 03/08/18 18:54 BP 122/76 03/08/18 14:48 Pulse Ox 100 03/08/18 18:54 Intake & Output 03/08/18 03/08/18 03/09/18 06:59 18:59 06:59 Intake Total 300 900 Balance 300 900 Intake: Oral 300 900 Other: # Voids 2 3 # Bowel Movements 0 1 Stool Characteristics Soft Formed Active Medications: Current Medications Albuterol/Ipratropium (Duoneb Neb) 3 ml HHN Q6HRT [facility] Stop: 04/29/18 12:59 Last Admin: 03/08/18 18:53 Dose: 3 ml Albuterol/Ipratropium (Duoneb Neb) 3 ml HHN Q2HRT PRN PRN Reason: Shortness of Breath Stop: 05/05/18 02:36 Last Admin: 03/08/18 05:43 Dose: 3 ml Atorvastatin Calcium (Lipitor) 40 mg PO HS [facility] Stop: 05/06/18 20:59 Last Admin: 03/07/18 21:15 Dose: 40 mg Baclofen (Lioresal) 10 mg PO BID [facility] Stop: 04/27/18 08:59 Last Admin: 03/08/18 16:21 Dose: 10 mg Benazepril HCl (Lotensin) 10 mg PO DAILY [facility] Stop: 04/27/18 08:59 Last Admin: 03/08/18 08:47 Dose: 10 mg Bisacodyl (Dulcolax 10 Mg Supp) 10 mg RC DAILY PRN PRN Reason: Constipation Stop: 04/27/18 02:09 Divalproex Sodium (Depakote Dr) 500 mg PO BID [facility]; Protocol Stop: 04/29/18 22:59 Last Admin: 03/08/18 16:21 Dose: 500 mg Docusate Sodium (Colace) 100 mg PO DAILY [facility] Stop: 04/27/18 08:59 Last Admin: 03/08/18 08:46 Dose: 100 mg Enoxaparin Sodium (Lovenox) 100 mg SUBQ DAILY [facility] Stop: 05/07/18 08:59 Last Admin: 03/08/18 08:55 Dose: 100 mg Escitalopram Oxalate (Lexapro) 10 mg PO DAILY [facility]; Protocol Stop: 04/27/18 08:59 Last Admin: 03/08/18 08:45 Dose: 10 mg Gabapentin (Neurontin) 300 mg PO BID [facility] Stop: 04/27/18 08:59 Last Admin: 03/08/18 16:21 Dose: 300 mg Hydrocortisone (Anusol-Hc) 25 mg RC Q12HR [facility] Stop: 04/27/18 08:59 Last Admin: 03/08/18 08:48 Dose: Not Given Levothyroxine Sodium (Synthroid) 0.075 mg PO QDAC [facility] Stop: 04/27/18 07:29 Last Admin: 03/08/18 06:47 Dose: 0.075 mg Lorazepam (Ativan) 0.5 mg PO Q6HR PRN; Protocol PRN Reason: Agitation Stop: 04/27/18 04:47 Last Admin: 03/06/18 14:09 Dose: 0.5 mg Magnesium Hydroxide (Milk Of Magnesia) 30 ml PO HS PRN PRN Reason: Pain (Severe) Stop: 04/27/18 02:09 Pantoprazole Sodium (Protonix) 40 mg PO QDAC [facility] Stop: 04/27/18 07:29 Last Admin: 03/08/18 06:47 Dose: 40 mg Quetiapine Fumarate 100 mg/ (Quetiapine Fumarate 25 mg) 125 mg PO BID [facility] Stop: 05/07/18 16:59 Last Admin: 03/08/18 16:23 Dose: 125 mg Sitagliptin Phosphate (Januvia) 100 mg PO DAILY [facility] Stop: 04/27/18 08:59 Last Admin: 03/08/18 08:44 Dose: 100 mg Sodium Phosphate (Fleet Enema) 135 ml RC Q48HR PRN PRN Reason: Constipation Stop: 04/27/18 02:09 Zolpidem Tartrate (Ambien) 5 mg PO HS PRN PRN Reason: Insomnia Stop: 04/27/18 04:48 Last Admin: 03/07/18 21:15 Dose: 5 mg Nutritional Asmnt/Malnutr-PDOC - Dietary Evaluation Malnutrition Findings (Please click <Entered> for more info): Nutritional Asmnt/Malnutrition Start: 03/03/18 14: 03 Text: Status: Complete Freq: Protocol: Document 03/03/18 14:03 LCHENG (Rec: 03/03/18 14:19 [email or web address] [email or web address]) Nutritional Asmnt/Malnutrition Patient General Information Nutritional Screening Moderate Risk Diagnosis psychosis Pertinent Medical Hx/Surgical Hx asthma, HTN, neuropahty, hypothyroidism, GERD, DM, OA, bipolar Subjective Information Pt seen eating in dinning room . Pt stated food looked good so far. Per EMR, PO intake 100 % of meals. Current Diet Order/ Nutrition Support 2500 jaqui ADA Pertinent Medications colace, synthorid, protonix, seroquel, januvia Pertinent Labs 02/25 Cr 1.5, glucose 142 Nutritional Hx/Data Height 1.68 m Height (Calculated Centimeters) 167.6 Current Weight (lbs) 92.986 kg Weight (Calculated Kilograms) 93.0 Weight (Calculated Grams) 71471.4 [place] Body Weight 130 Body Mass Index (BMI) 33.0 Weight Status Obese GI Symptoms GI Symptoms None Last BM 03/02 Difficult in: None Skin Integrity/Comment: intact bilateral lower legs swelling +2 per nurse note Current %PO Good (75-100%) Estimated Nutritional Goals BEE in Kcals: Adj wt of IBW Calories/Kcals/Kg 25-30 Kcals Calculated 8855-5875 Protein: Adj wt of IBW Protein g/k-1.2 Protein Calculated 68-82 Fluid: ml 1700-2040ml (1ml/kcal) Nutritional Problem 1. Problem Problem altered nutrition related labs Etiology hx of DM Signs/Symptoms: glucose 142 Malnutrition Alert Is there a minimum of two criteria No selected? Query Text:Check all the applicable criteria. A minimum of two criteria are recommended for diagnosis of either severe or non-severe malnutrition. Malnutrition Related to Morbid Obesity Malnutrition related to morbid obesity No Intervention/Recommendation Comments 1. Recommend [id number] (1800 ADA) diet considering obese. RICARDO Last notified, will contact doctor. 2. Monitor PO intake, wt, labs and skin integrity 3. F/U as low risk in 7 days, 03/10 Expected Outcomes/Goals Expected Outcomes/Goals 1. PO intake to meet at least 75% of nutritional needs. 2. Wt stability, skin to remain intact, labs to approach WNL.
[2018-03-09] MEDS: Albuterol/Ipratropium Neb 3 ML AERS HHN SCH ×4 (00:18→19:44)
--- NOTE | 2018-03-09 00:34 | Progress Notes ---
DATE: 03/08/2018 Case was discussed with staff of the patient, reviewed records and lab work. The patient continues to be agitated, continues to be hyperverbal. Continues to be tangential. Her speech continues to be easily agitated, talking about multiple subjects that has no relation to the question asked, tangential, continues to be somewhat manicky, though she is less loud than she was when she first came in. She is compliant with the medication with no side effects, no sedation, no nausea, no extrapyramidal symptoms. Dr. Rivera had her on Seroquel 100 mg twice a day, Lexapro 10 mg daily, Depakote 500 mg twice a day. Her Depakote level is 64.5 which is within acceptable range. I will be increasing her Seroquel dose to 125 mg twice a day and we will continue to work with the patient in group therapy, milieu therapy, and adjust medications as needed. JOB# [id number]
[2018-03-09] MEDS: Levothyroxine 0.075 Mg Tab PO SCH (06:30)
[2018-03-09] MEDS: Pantoprazole 40 mg EC Tab PO SCH (06:30)
[2018-03-09] MEDS: Enoxaparin 100 mg/mL 1mL Syr SUBQ SCH (08:48)
--- NOTE | 2018-03-09 15:13 | General Progress Note ---
Subjective - Review of Systems Events since last encounter: no change no distress Subjective: no overnight events. nad Objective - Results Result Diagrams: 02/25/18 23:45 02/25/18 23:45 Recent Labs: Laboratory Last Values WBC 8.5 Th/cmm (4.8-10.8) 02/25/18 23:45 RBC 4.20 Mil/cmm (3.80-5.20) 02/25/18 23:45 Hgb 12.9 gm/dL (12-16) 02/25/18 23:45 Hct 38.8 % (41.0-60) L 02/25/18 23:45 MCV 92.5 fl (81-100) 02/25/18 23:45 MCH 30.7 pg (27.0-31.0) 02/25/18 23:45 MCHC Differential 33.2 pg (28.0-36.0) 02/25/18 23:45 RDW 14.0 % (11.5-20.0) 02/25/18 23:45 Plt Count 156 Th/cmm (150-400) 02/25/18 23:45 MPV 8.8 fl 02/25/18 23:45 Neutrophils % 62.6 % (40.0-80.0) 02/25/18 23:45 Lymphocytes % 22.3 % (20.0-50.0) 02/25/18 23:45 Monocytes % 6.6 % (2.0-10.0) 02/25/18 23:45 Eosinophils % 8.1 % (0.0-5.0) H 02/25/18 23:45 Basophils % 0.4 % (0.0-2.0) 02/25/18 23:45 Sodium 137 mEq/L (136-145) 02/25/18 23:45 Potassium 4.1 mEq/L (3.5-5.1) 02/25/18 23:45 Chloride 102 mEq/L (98-107) 02/25/18 23:45 Carbon Dioxide 28.8 mEq/L (21.0-31.0) 02/25/18 23:45 Anion Gap 10.3 (7.0-16.0) 02/25/18 23:45 BUN 12 mg/dL (7-25) 02/25/18 23:45 Creatinine 1.5 mg/dL (0.6-1.2) H 02/25/18 23:45 Est GFR ( Amer) TNP 02/25/18 23:45 Est GFR (Non-Af Amer) TNP 02/25/18 23:45 BUN/Creatinine Ratio 8.0 02/25/18 23:45 Glucose 142 mg/dL (70-105) H 02/25/18 23:45 Calcium 10.3 mg/dL (8.6-10.3) 02/25/18 23:45 Total Bilirubin 0.4 mg/dL (0.3-1.0) 02/25/18 23:45 AST 48 U/L (13-39) H 02/25/18 23:45 ALT 54 U/L (7-52) H 02/25/18 23:45 Alkaline Phosphatase 35 U/L (34-104) 02/25/18 23:45 Total Protein 7.4 gm/dL (6.0-8.3) 02/25/18 23:45 Albumin 4.4 gm/dL (3.7-5.3) 02/25/18 23:45 Globulin 3.0 gm/dL 02/25/18 23:45 Albumin/Globulin Ratio 1.5 (1.0-1.8) 02/25/18 23:45 Urine Source CLEAN C 02/26/18 00:30 Urine Color YELLOW 02/26/18 00:30 Urine Clarity CLEAR (CLEAR) 02/26/18 00:30 Urine pH 6.0 (4.6 - 8.0) 02/26/18 00:30 Ur Specific [place] <= 1.005 (1.005-1.030) 02/26/18 00:30 Urine Protein NEGATIVE mg/dL (NEGATIVE) 02/26/18 00:30 Urine Glucose (UA) NEGATIVE mg/dL (NEGATIVE) 02/26/18 00:30 Urine Ketones NEGATIVE mg/dL (NEGATIVE) 02/26/18 00:30 Urine Blood NEGATIVE (NEGATIVE) 02/26/18 00:30 Urine Nitrate NEGATIVE (NEGATIVE) 02/26/18 00:30 Urine Bilirubin NEGATIVE (NEGATIVE) 02/26/18 00:30 Urine Urobilinogen 0.2 E.U./dL (0.2 - 1.0) 02/26/18 00:30 Ur Leukocyte Esterase NEGATIVE (NEGATIVE) 02/26/18 00:30 Urine RBC NONE SEEN /hpf (0-5) 02/26/18 00:30 Urine WBC NONE SEEN /hpf (0-5) 02/26/18 00:30 Ur Epithelial Cells NONE SEEN /lpf (FEW) 02/26/18 00:30 Urine Bacteria NONE SEEN /hpf (NONE SEEN) 02/26/18 00:30 Valproic Acid 64.5 ug/mL (50.0-100.0) 03/04/18 07:10 - Physical Exam Vitals and I&O: Vital Signs Temp 97.3 F 03/09/18 14:43 Pulse 92 03/09/18 14:43 Resp 18 03/09/18 14:43 BP 108/62 03/09/18 14:43 Pulse Ox 97 03/09/18 14:43 Intake & Output 03/08/18 03/09/18 03/09/18 18:59 06:59 18:59 Intake Total 900 120 Balance 900 120 Intake: Oral 900 120 Other: # Voids 3 2 # Bowel Movements 1 Stool Characteristics Soft Soft Soft Formed Formed Formed Active Medications: Current Medications Albuterol/Ipratropium (Duoneb Neb) 3 ml HHN Q6HRT [facility] Stop: 04/29/18 12:59 Last Admin: 03/09/18 13:59 Dose: 3 ml Albuterol/Ipratropium (Duoneb Neb) 3 ml HHN Q2HRT PRN PRN Reason: Shortness of Breath Stop: 05/05/18 02:36 Last Admin: 03/08/18 05:43 Dose: 3 ml Atorvastatin Calcium (Lipitor) 40 mg PO HS [facility] Stop: 05/06/18 20:59 Last Admin: 03/08/18 21:59 Dose: 40 mg Baclofen (Lioresal) 10 mg PO BID [facility] Stop: 04/27/18 08:59 Last Admin: 03/09/18 08:23 Dose: 10 mg Benazepril HCl (Lotensin) 10 mg PO DAILY [facility] Stop: 04/27/18 08:59 Last Admin: 03/09/18 08:24 Dose: 10 mg Bisacodyl (Dulcolax 10 Mg Supp) 10 mg RC DAILY PRN PRN Reason: Constipation Stop: 04/27/18 02:09 Divalproex Sodium (Depakote Dr) 500 mg PO BID [facility]; Protocol Stop: 04/29/18 22:59 Last Admin: 03/09/18 08:24 Dose: 500 mg Docusate Sodium (Colace) 100 mg PO DAILY [facility] Stop: 04/27/18 08:59 Last Admin: 03/09/18 08:24 Dose: 100 mg Enoxaparin Sodium (Lovenox) 100 mg SUBQ DAILY [facility] Stop: 05/07/18 08:59 Last Admin: 03/09/18 08:48 Dose: 100 mg Escitalopram Oxalate (Lexapro) 10 mg PO DAILY [facility]; Protocol Stop: 04/27/18 08:59 Last Admin: 03/09/18 08:24 Dose: 10 mg Gabapentin (Neurontin) 300 mg PO BID [facility] Stop: 04/27/18 08:59 Last Admin: 03/09/18 08:23 Dose: 300 mg Hydrocortisone (Anusol-Hc) 25 mg RC Q12HR [facility] Stop: 04/27/18 08:59 Last Admin: 03/09/18 08:24 Dose: 25 mg Levothyroxine Sodium (Synthroid) 0.075 mg PO QDAC [facility] Stop: 04/27/18 07:29 Last Admin: 03/09/18 06:30 Dose: 0.075 mg Lorazepam (Ativan) 0.5 mg PO Q6HR PRN; Protocol PRN Reason: Agitation Stop: 04/27/18 04:47 Last Admin: 03/06/18 14:09 Dose: 0.5 mg Magnesium Hydroxide (Milk Of Magnesia) 30 ml PO HS PRN PRN Reason: Pain (Severe) Stop: 04/27/18 02:09 Pantoprazole Sodium (Protonix) 40 mg PO QDAC [facility] Stop: 04/27/18 07:29 Last Admin: 03/09/18 06:30 Dose: 40 mg Quetiapine Fumarate 100 mg/ (Quetiapine Fumarate 25 mg) 125 mg PO BID [facility] Stop: 05/07/18 16:59 Last Admin: 03/09/18 08:23 Dose: 125 mg Sitagliptin Phosphate (Januvia) 100 mg PO DAILY [facility] Stop: 04/27/18 08:59 Last Admin: 03/09/18 08:25 Dose: 100 mg Sodium Phosphate (Fleet Enema) 135 ml RC Q48HR PRN PRN Reason: Constipation Stop: 04/27/18 02:09 Zolpidem Tartrate (Ambien) 5 mg PO HS PRN PRN Reason: Insomnia Stop: 04/27/18 04:48 Last Admin: 03/09/18 00:15 Dose: 5 mg Nutritional Asmnt/Malnutr-PDOC - Dietary Evaluation Malnutrition Findings (Please click <Entered> for more info): Nutritional Asmnt/Malnutrition Start: 03/03/18 14: 03 Text: Status: Complete Freq: Protocol: Document 03/03/18 14:03 LCHENG (Rec: 03/03/18 14:19 HEN [id number]) Nutritional Asmnt/Malnutrition Patient General Information Nutritional Screening Moderate Risk Diagnosis psychosis Pertinent Medical Hx/Surgical Hx asthma, HTN, neuropahty, hypothyroidism, GERD, DM, OA, bipolar Subjective Information Pt seen eating in dinning room . Pt stated food looked good so far. Per EMR, PO intake 100 % of meals. Current Diet Order/ Nutrition Support 2500 jaqui ADA Pertinent Medications colace, synthorid, protonix, seroquel, januvia Pertinent Labs 02/25 Cr 1.5, glucose 142 Nutritional Hx/Data Height 1.68 m Height (Calculated Centimeters) 167.6 Current Weight (lbs) 92.986 kg Weight (Calculated Kilograms) 93.0 Weight (Calculated Grams) 15224.4 [place] Body Weight 130 Body Mass Index (BMI) 33.0 Weight Status Obese GI Symptoms GI Symptoms None Last BM 03/02 Difficult in: None Skin Integrity/Comment: intact bilateral lower legs swelling +2 per nurse note Current %PO Good (75-100%) Estimated Nutritional Goals BEE in Kcals: Adj wt of IBW Calories/Kcals/Kg 25-30 Kcals Calculated 4036-6279 Protein: Adj wt of IBW Protein g/k-1.2 Protein Calculated 68-82 Fluid: ml 1700-2040ml (1ml/kcal) Nutritional Problem 1. Problem Problem altered nutrition related labs Etiology hx of DM Signs/Symptoms: glucose 142 Malnutrition Alert Is there a minimum of two criteria No selected? Query Text:Check all the applicable criteria. A minimum of two criteria are recommended for diagnosis of either severe or non-severe malnutrition. Malnutrition Related to Morbid Obesity Malnutrition related to morbid obesity No Intervention/Recommendation Comments 1. Recommend [id number] (1800 ADA) diet considering obese. RICARDO Last notified, will contact doctor. 2. Monitor PO intake, wt, labs and skin integrity 3. F/U as low risk in 7 days, 03/10 Expected Outcomes/Goals Expected Outcomes/Goals 1. PO intake to meet at least 75% of nutritional needs. 2. Wt stability, skin to remain intact, labs to approach WNL.
[2018-03-10] MEDS: Albuterol/Ipratropium Neb 3 ML AERS HHN SCH ×4 (01:00→19:03)
[2018-03-10] MEDS: Levothyroxine 0.075 Mg Tab PO SCH (06:39)
[2018-03-10] MEDS: Pantoprazole 40 mg EC Tab PO SCH (06:40)
--- NOTE | 2018-03-10 09:58 | Progress Notes ---
DATE: 03/09/2018 SUBJECTIVE: Chart reviewed and the patient interviewed. Also, discussed the patient's condition with the staff and reviewed records and labs. The patient is still anxious and is still in irritable mood. The patient also is hyperverbal and she is a bit intrusive to others. The patient also is still easily agitated and she is still suspicious and somehow paranoid. Otherwise, the patient is interacting slightly more, but in a confused way. ASSESSMENT: The patient is still agitated and needs close monitoring. TREATMENT PLAN: Continue to monitor her behavior and her condition closely. Also, continue to monitor her condition closely and continue to adjust psychotropic medications and followup. JOB# [id number]
[2018-03-10] MEDS: Enoxaparin 100 mg/mL 1mL Syr SUBQ SCH (10:16)
--- NOTE | 2018-03-10 23:25 | General Progress Note ---
Subjective - Review of Systems Service Date: 03/10/18 Subjective: no overnight events. nad Objective - Results Result Diagrams: 02/25/18 23:45 02/25/18 23:45 Recent Labs: Laboratory Last Values WBC 8.5 Th/cmm (4.8-10.8) 02/25/18 23:45 RBC 4.20 Mil/cmm (3.80-5.20) 02/25/18 23:45 Hgb 12.9 gm/dL (12-16) 02/25/18 23:45 Hct 38.8 % (41.0-60) L 02/25/18 23:45 MCV 92.5 fl (81-100) 02/25/18 23:45 MCH 30.7 pg (27.0-31.0) 02/25/18 23:45 MCHC Differential 33.2 pg (28.0-36.0) 02/25/18 23:45 RDW 14.0 % (11.5-20.0) 02/25/18 23:45 Plt Count 156 Th/cmm (150-400) 02/25/18 23:45 MPV 8.8 fl 02/25/18 23:45 Neutrophils % 62.6 % (40.0-80.0) 02/25/18 23:45 Lymphocytes % 22.3 % (20.0-50.0) 02/25/18 23:45 Monocytes % 6.6 % (2.0-10.0) 02/25/18 23:45 Eosinophils % 8.1 % (0.0-5.0) H 02/25/18 23:45 Basophils % 0.4 % (0.0-2.0) 02/25/18 23:45 Sodium 137 mEq/L (136-145) 02/25/18 23:45 Potassium 4.1 mEq/L (3.5-5.1) 02/25/18 23:45 Chloride 102 mEq/L (98-107) 02/25/18 23:45 Carbon Dioxide 28.8 mEq/L (21.0-31.0) 02/25/18 23:45 Anion Gap 10.3 (7.0-16.0) 02/25/18 23:45 BUN 12 mg/dL (7-25) 02/25/18 23:45 Creatinine 1.5 mg/dL (0.6-1.2) H 02/25/18 23:45 Est GFR ( Amer) TNP 02/25/18 23:45 Est GFR (Non-Af Amer) TNP 02/25/18 23:45 BUN/Creatinine Ratio 8.0 02/25/18 23:45 Glucose 142 mg/dL (70-105) H 02/25/18 23:45 Calcium 10.3 mg/dL (8.6-10.3) 02/25/18 23:45 Total Bilirubin 0.4 mg/dL (0.3-1.0) 02/25/18 23:45 AST 48 U/L (13-39) H 02/25/18 23:45 ALT 54 U/L (7-52) H 02/25/18 23:45 Alkaline Phosphatase 35 U/L (34-104) 02/25/18 23:45 Total Protein 7.4 gm/dL (6.0-8.3) 02/25/18 23:45 Albumin 4.4 gm/dL (3.7-5.3) 02/25/18 23:45 Globulin 3.0 gm/dL 02/25/18 23:45 Albumin/Globulin Ratio 1.5 (1.0-1.8) 02/25/18 23:45 Urine Source CLEAN C 02/26/18 00:30 Urine Color YELLOW 02/26/18 00:30 Urine Clarity CLEAR (CLEAR) 02/26/18 00:30 Urine pH 6.0 (4.6 - 8.0) 02/26/18 00:30 Ur Specific [place] <= 1.005 (1.005-1.030) 02/26/18 00:30 Urine Protein NEGATIVE mg/dL (NEGATIVE) 02/26/18 00:30 Urine Glucose (UA) NEGATIVE mg/dL (NEGATIVE) 02/26/18 00:30 Urine Ketones NEGATIVE mg/dL (NEGATIVE) 02/26/18 00:30 Urine Blood NEGATIVE (NEGATIVE) 02/26/18 00:30 Urine Nitrate NEGATIVE (NEGATIVE) 02/26/18 00:30 Urine Bilirubin NEGATIVE (NEGATIVE) 02/26/18 00:30 Urine Urobilinogen 0.2 E.U./dL (0.2 - 1.0) 02/26/18 00:30 Ur Leukocyte Esterase NEGATIVE (NEGATIVE) 02/26/18 00:30 Urine RBC NONE SEEN /hpf (0-5) 02/26/18 00:30 Urine WBC NONE SEEN /hpf (0-5) 02/26/18 00:30 Ur Epithelial Cells NONE SEEN /lpf (FEW) 02/26/18 00:30 Urine Bacteria NONE SEEN /hpf (NONE SEEN) 02/26/18 00:30 Valproic Acid 64.5 ug/mL (50.0-100.0) 03/04/18 07:10 - Physical Exam Vitals and I&O: Vital Signs Temp 97.4 F 03/10/18 14:00 Pulse 86 03/10/18 19:03 Resp 20 03/10/18 19:03 BP 113/87 03/10/18 14:00 Pulse Ox 96 03/10/18 19:03 Intake & Output 03/10/18 03/10/18 03/11/18 06:59 18:59 06:59 Intake Total 120 1000 Balance 120 1000 Intake: Oral 120 1000 Other: # Voids 3 4 # Bowel Movements 1 Stool Characteristics Soft Soft Formed Formed Active Medications: Current Medications Albuterol/Ipratropium (Duoneb Neb) 3 ml HHN Q6HRT [facility]INA Stop: 04/29/18 12:59 Last Admin: 03/10/18 19:03 Dose: 3 ml Albuterol/Ipratropium (Duoneb Neb) 3 ml HHN Q2HRT PRN PRN Reason: Shortness of Breath Stop: 05/05/18 02:36 Last Admin: 03/08/18 05:43 Dose: 3 ml Atorvastatin Calcium (Lipitor) 40 mg PO HS [facility] Stop: 05/06/18 20:59 Last Admin: 03/10/18 20:11 Dose: 40 mg Baclofen (Lioresal) 10 mg PO BID [facility] Stop: 04/27/18 08:59 Last Admin: 03/10/18 17:17 Dose: 10 mg Benazepril HCl (Lotensin) 10 mg PO DAILY [facility] Stop: 04/27/18 08:59 Last Admin: 03/10/18 10:13 Dose: 10 mg Bisacodyl (Dulcolax 10 Mg Supp) 10 mg RC DAILY PRN PRN Reason: Constipation Stop: 04/27/18 02:09 Divalproex Sodium (Depakote Dr) 500 mg PO BID [facility]; Protocol Stop: 04/29/18 22:59 Last Admin: 03/10/18 17:17 Dose: 500 mg Docusate Sodium (Colace) 100 mg PO DAILY [facility] Stop: 04/27/18 08:59 Last Admin: 03/10/18 10:12 Dose: 100 mg Enoxaparin Sodium (Lovenox) 100 mg SUBQ DAILY [facility] Stop: 05/07/18 08:59 Last Admin: 03/10/18 10:16 Dose: 100 mg Escitalopram Oxalate (Lexapro) 10 mg PO DAILY [facility]; Protocol Stop: 04/27/18 08:59 Last Admin: 03/10/18 10:15 Dose: 10 mg Gabapentin (Neurontin) 300 mg PO BID [facility] Stop: 04/27/18 08:59 Last Admin: 03/10/18 17:17 Dose: 300 mg Hydrocortisone (Anusol-Hc) 25 mg RC Q12HR [facility] Stop: 04/27/18 08:59 Last Admin: 03/10/18 20:10 Dose: Not Given Levothyroxine Sodium (Synthroid) 0.075 mg PO QDAC [facility] Stop: 04/27/18 07:29 Last Admin: 03/10/18 06:39 Dose: 0.075 mg Lorazepam (Ativan) 0.5 mg PO Q6HR PRN; Protocol PRN Reason: Agitation Stop: 04/27/18 04:47 Last Admin: 03/06/18 14:09 Dose: 0.5 mg Magnesium Hydroxide (Milk Of Magnesia) 30 ml PO HS PRN PRN Reason: Pain (Severe) Stop: 04/27/18 02:09 Pantoprazole Sodium (Protonix) 40 mg PO QDAC [facility] Stop: 04/27/18 07:29 Last Admin: 03/10/18 06:40 Dose: 40 mg Quetiapine Fumarate (Seroquel) 25 mg PO BID [facility] Stop: 05/09/18 08:59 Last Admin: 03/10/18 17:17 Dose: 25 mg Sitagliptin Phosphate (Januvia) 100 mg PO DAILY [facility] Stop: 04/27/18 08:59 Last Admin: 03/10/18 10:15 Dose: 100 mg Sodium Phosphate (Fleet Enema) 135 ml RC Q48HR PRN PRN Reason: Constipation Stop: 04/27/18 02:09 Zolpidem Tartrate (Ambien) 5 mg PO HS PRN PRN Reason: Insomnia Stop: 04/27/18 04:48 Last Admin: 03/10/18 20:11 Dose: 5 mg Nutritional Asmnt/Malnutr-PDOC - Dietary Evaluation Malnutrition Findings (Please click <Entered> for more info): Nutritional Asmnt/Malnutrition Start: 03/03/18 14: 03 Text: Status: Complete Freq: Protocol: Document 03/03/18 14:03 TKG (Rec: 03/03/18 14:19 LCHEN [id number]) Nutritional Asmnt/Malnutrition Patient General Information Nutritional Screening Moderate Risk Diagnosis psychosis Pertinent Medical Hx/Surgical Hx asthma, HTN, neuropahty, hypothyroidism, GERD, DM, OA, bipolar Subjective Information Pt seen eating in dinning room . Pt stated food looked good so far. Per EMR, PO intake 100 % of meals. Current Diet Order/ Nutrition Support 2500 jaqui ADA Pertinent Medications colace, synthorid, protonix, seroquel, januvia Pertinent Labs 02/25 Cr 1.5, glucose 142 Nutritional Hx/Data Height 1.68 m Height (Calculated Centimeters) 167.6 Current Weight (lbs) 92.986 kg Weight (Calculated Kilograms) 93.0 Weight (Calculated Grams) 41688.4 Transfer Body Weight 130 Body Mass Index (BMI) 33.0 Weight Status Obese GI Symptoms GI Symptoms None Last BM 03/02 Difficult in: None Skin Integrity/Comment: intact bilateral lower legs swelling +2 per nurse note Current %PO Good (75-100%) Estimated Nutritional Goals BEE in Kcals: Adj wt of IBW Calories/Kcals/Kg 25-30 Kcals Calculated 5073-9593 Protein: Adj wt of IBW Protein g/k-1.2 Protein Calculated 68-82 Fluid: ml 1700-2040ml (1ml/kcal) Nutritional Problem 1. Problem Problem altered nutrition related labs Etiology hx of DM Signs/Symptoms: glucose 142 Malnutrition Alert Is there a minimum of two criteria No selected? Query Text:Check all the applicable criteria. A minimum of two criteria are recommended for diagnosis of either severe or non-severe malnutrition. Malnutrition Related to Morbid Obesity Malnutrition related to morbid obesity No Intervention/Recommendation Comments 1. Recommend [id number] (1800 ADA) diet considering obese. RICARDO Last notified, will contact doctor. 2. Monitor PO intake, wt, labs and skin integrity 3. F/U as low risk in 7 days, 03/10 Expected Outcomes/Goals Expected Outcomes/Goals 1. PO intake to meet at least 75% of nutritional needs. 2. Wt stability, skin to remain intact, labs to approach WNL.
[2018-03-11] MEDS: Albuterol/Ipratropium Neb 3 ML AERS HHN SCH ×3 (00:26→14:20)
[2018-03-11] MEDS: Albuterol/Ipratropium Neb 3 ML AERS HHN PRN (04:47)
[2018-03-11] MEDS: Pantoprazole 40 mg EC Tab PO SCH (06:30)
[2018-03-11] MEDS: Levothyroxine 0.075 Mg Tab PO SCH (06:30)
--- NOTE | 2018-03-11 07:20 | Progress Notes ---
DATE: SUBJECTIVE: Chart reviewed and the patient interviewed. Also discussed the patient's condition with the staff and reviewed records and labs. The patient is still easily agitated and she is still hyperverbal. The patient also is still confused that she has been going around with her wheelchair and hitting others. The patient also has been suspicious and paranoid and has been argumentative. Otherwise, the patient is compliant with taking Depakote and Lexapro with no side effect. ASSESSMENT: The patient is still psychotic and agitated. TREATMENT PLAN: Continue to monitor her behavior and condition closely. Also, decrease Seroquel to 25 mg twice a day. Also, continue to monitor Depakote and continue to monitor Depakote blood level. The Depakote blood level that was done on 03/04/2018 came back to be 64.5. JOB# [id number]
[2018-03-11] MEDS: Enoxaparin 100 mg/mL 1mL Syr SUBQ SCH (09:17)
--- NOTE | 2018-03-12 18:18 | Discharge Summary ---
DATE OF DISCHARGE: 03/11/2018 DATE OF ADMISSION: 02/26/2018 DATE OF DISCHARGE: 03/11/2018 AGE: 82 years. SEX: Female. PHYSICIAN: Dr. Rivera. FINAL DIAGNOSIS AND PRIMARY DIAGNOSIS: Bipolar disorder, manic episode, severe, with psychotic features. REASON FOR HOSPITALIZATION: The patient was admitted to the hospital from [facility] because of increased agitation and irritability as well as aggressive behavior. The patient was striking out at staff and other patients and was not able to follow directions. HOSPITAL COURSE: The patient continued to be increasingly agitated and manicky. The patient also was hyperverbal. The patient also was having sexual inappropriate comments. She also was restless. The patient also had pressured speech and was wandering around the unit, intrusive to others. The patient was started on Depakote and the dose adjusted to 500 mg twice a day. She also was given gabapentin 300 mg twice a day. The patient also started on Seroquel and the dose adjusted to 150 mg twice a day. Gradually, the patient's affect was brighter. The patient was less manicky. She was less agitated and less irritable. She is active more appropriately and she also was sleeping better at night. She also was less intrusive to others. The patient was accepted back at [facility] and the patient was discharged from the hospital. PHYSICAL EXAMINATION: The patient had hypothyroidism and hypertension. No major medical problems while the patient was in the hospital. DISCHARGE PLANS: The patient discharged from the hospital, returned to [facility] with plans for outpatient treatment and followup to continue there. DISCHARGE ACTIVITY: No restrictions. DISCHARGE DIET: Regular. EXPECTED OUTCOME AFTER DISCHARGE: Fair if the patient continues to take medications and continues outpatient treatment. JOB# [id number]
== END 2018-03-11 15:45 | DRG 885 ==
LOC: ER 22:01 → GERO2 02-26 00:40 → GERO 02-26 15:59
PROVIDERS: ADMIT Psychiatry & Neurology Psychiatry; ATTEND Psychiatry & Neurology Psychiatry
DX: F31.2 Bipolar disorder, current episode manic severe with psychotic features (principal); I10 Essential (primary) hypertension; K21.9 Gastro-esophageal reflux disease without esophagitis; E03.9 Hypothyroidism, unspecified; E78.5 Hyperlipidemia, unspecified; E11.42 Type 2 diabetes mellitus with diabetic polyneuropathy; M19.90 Unspecified osteoarthritis, unspecified site; J45.909 Unspecified asthma, uncomplicated; Z88.2 Allergy status to sulfonamides; Z88.0 Allergy status to penicillin; Z88.6 Allergy status to analgesic agent
CPT/HCPCS: 36415-UA; 80053-TC; 80164-TC; 81001-TC; 85025-TC; 90899; 93970-TC-50; 94640; 94760; G0410; J1650; Z7610